=== PATIENT | male | born 1980 | race Caucasian/White ===

== ENCOUNTER 2018-05-26 10:19 | Inpatient (IN) ==
[2018-05-26] MEDS ORDERED: SOLU-MEDROL IV ONE (10:25)
--- NOTE | 2018-05-26 10:56 | ED EKG INTERP ---
This chart was entered by Sneha Pratt Scribe, acting as scribe for Saulo Marquez DO. EKG Interpretation - EKG Time of EKG reading by physician:: 10:53 EKG Interpretation (*Must complete 3 of following elements*): Abnormal Rate: 111 Rhythm: sinus tachycardia ST Wave: elevated (T wave abnormality, consider anterior ischemia) Comments: abnormal ECG Attestation - Physician/ ESTEPHANIE Attestation Patient care was provided by Advanced Practice Provider:: No The physician spent face to face time with patient:: Yes Advanced Practice Provider documentation review:: Supervising physician onsite and consulted in the evaluation and care of this patient. The physician did have a face to face encounter with the patient. This chart was documented by the indicated scribe, (Sneha Pratt Scribe) and accurately reflects the services I performed and decisions made by me, Saulo Marquez DO, as attested by the provider's signature.
[2018-05-26 10:58] LABS: BASO# 0.03 X1000 (0.0-0.2); BASO% 0.9 % (0.0-0.8); EOS# 0.05 X1000 (0.0-0.7); EOS% 1.4 % (0.0-10.0); HEMATOCRIT 49.1 % (42.0-52.0); HEMOGLOBIN 16.3 g/dL (14.0-18.0); LYMPH# 1.12 X1000 (1.2-3.4); LYMPH% 32.4 % (20.5-51.1); MCH 32.3 PG (27-31); MCHC 33.2 g/dL (33-37); MCV 97.4 FL (81-99); MONO# 0.38 X1000 (0.11-0.59); MPV 9.6 FL (7.4-10.4); NEUT# 1.88 X1000 (1.4-6.5); NEUT% 54.3 % (42.2-75.2); PLT 181 X1000 (130-400); RBC 5.04 XMIL (4.7-6.1); RDW 14.1 % (11.5-14.5); WBC 3.46 X1000 (4.8-10.8)
--- NOTE | 2018-05-26 11:05 | Diag Imaging Result Doc PS360 ---
EXAM: CHEST-2 VIEWS 05/26/2018 HISTORY: cough, shortness of breath TECHNIQUE: PA and lateral chest COMMENT: The inspiration is somewhat suboptimal. The appearance of the chest has not changed significantly since 05/08/2018. IMPRESSION: Stable chest. Electronically signed by Henry Bryant 05/26/2018 11:02 AM
[2018-05-26] MEDS ORDERED: ASPIRIN PO ONE (11:13)
[2018-05-26] MEDS ORDERED: DUONEB (A & A) INH ONE (11:18)
[2018-05-26 11:19] LABS: AGAP 13; ALB/GLOB RATIO 1.1; ALBUMIN 4.2 g/dL (3.5-5.0); ALKALINE PHOSPHATASE 84 U/L (32-122); BUN 4 mg/dL (8-22); CHLORIDE 96 mmol/L (98-107); COSMO 273; CREATININE 0.8 mg/dL (0.7-1.2); ESTIMATED GFR > 60; GLUCOSE 144 mg/dL (70-104); GOT 86 U/L (10-34); GPT 81 U/L (10-44); POTASSIUM 4.2 mmol/L (3.5-5.1); SODIUM 137 mmol/L (136-145); TCO2 28 mmol/L (25-35); TOTAL BILIRUBIN 0.18 mg/dL (0.20-1.00); TOTAL PROTEIN 8.1 g/dL (6.3-8.3)
--- NOTE | 2018-05-26 11:26 | PROVIDER DOCUMENTATION ---
HPI-Respiratory General - General Chief Complaint: Shortness of Breath Stated Complaint: SOB Time Seen by Provider: 05/26/18 10:23 Source: patient, old records Allergies/Adverse Reactions: Patient Allergies Allergy/AdvReac Type Severity Reaction Status Date / Time No Known Allergies Allergy Verified 05/26/18 10:31 Home Medications: Home Medication List Medication Instructions Recorded Confirmed Last Taken Type Acyclovir [Zovirax] 800 mg PO 5XDAY #35 tab 01/25/18 Unknown Rx Hydrocodone/Acetaminophen [[place] 1 ea PO Q6H PRN PRN 5 Days #20 tab 01/25/18 Unknown Rx 7.5-325 Tablet] Albuterol Sulfate Inhaler 2 puff INH Q6H PRN PRN #1 inhaler 05/09/18 Unknown Rx [Ventolin Hfa] D-Methorphan/P-Epd/Bpm [Bromfed Dm 5 ml PO Q4H PRN #120 ml 05/09/18 Unknown Rx Liquid] Lisinopril 20 mg PO DAILY #30 tab 05/09/18 Unknown Rx Prednisone 20 mg PO DIRECTED #18 tab 05/09/18 Unknown Rx - History of Present Illness-Resp Nature of Presenting Problem: This pt, who has a hx of COPD and reports that he has a chronically "collapsed left lung", presents today by EMS for reported SOB. He states that he is supposed to be taking albuterol and "some other stuff" at home but has not filled any of his prescriptions due to lack of funds. EMS reports on arrival O2 sat was 89% on RA but after a breathing tx his O2 sat maria c to 95%. Pt denies any chest pains. No other issues or complaints at this time. Quality of Pain: reports: none Severity in ED: reports: moderate Onset/Duration: reports: 2 days ago Timing: reports: still present, getting worse Context: reports: out of meds Episode Frequency: chronic episodes Current Respiratory Medication Therapy: Initiated other (see hpi) Modifying Factors: improves with: exertion Associated Symptoms: reports: shortness of breath, wheezing Similar Symptoms Previously?: Yes Recently seen or treated by another doctor?: Yes (other ER) Review of Systems - Adult - REVIEW OF SYSTEMS - ADULT Constitutional: reports: no symptoms reported. denies: chills, fever Eyes: reports: no symptoms reported. denies: discharge, dry eyes Ears, Nose, Mouth & Throat: reports: no symptoms reported. denies: ear discharge, ear pain Cardiovascular: reports: no symptoms reported. denies: chest pain, edema Respiratory: reports: shortness of breath, wheezing. denies: chronic cough, cough Gastrointestinal: reports: no symptoms reported. denies: abdominal pain, hematemesis Genitourinary: reports: no symptoms reported. denies: dysuria, discharge Musculoskeletal: reports: no symptoms reported. denies: bone pain, back pain Integumentary: reports: no symptoms reported. denies: hives, hair loss Neurological: reports: no symptoms reported. denies: ataxia, dizziness/vertigo Psychiatric: reports: no symptoms reported. denies: anxiety, anti-depressant use Endocrine: reports: no symptoms reported Hematologic/Lymphatic: reports: no symptoms reported Allergic/Immunologic: reports: no symptoms reported All Other Systems: Reviewed and Negative Past History - Adult - PAST MEDICAL HISTORY-ADULT Review of Records: reports: Old Records Reviewed, Nursing Assessment Review, Medications Reviewed, Social history reviewed & non-contributory. Major Childhood Illnesses: reports: denies history Cardiovascular: reports: denies history Respiratory: reports: COPD Gastrointestinal: reports: denies history, pancreatitis Obstetrical/Gynecological: reports: denies history Genitourinary: reports: denies history Musculoskeletal: reports: denies history Neurological: reports: denies history Endocrine/Immune: reports: denies history Other Conditions: reports: denies history - PRIOR SURGERIES/PROCEDURES Surgical/Procedure History: reports: other (lung removed) - IMMUNIZATION STATUS Childhood Immunizations: See Nurse Assessment Flu Vaccine: See Nurse Assessment - FAMILY HISTORY Family History: reviewed, not pertinent - SOCIAL HISTORY Smoking: cigarettes, greater than 1 pack/day Provider spent 3-5 mins advising pt. on dangers of tobacco.: Discussed manners to quit use, and f/u contacts for add'l counseling. Physical Exam-General - PHYSICAL EXAM-ADULT Initial Vital Signs Reviewed: Yes - CONSTITUTIONAL General Appearance: appears well, alert, no apparent distress - EYES Eyes: PERRL/EOMI, pink conjunctivae - HEAD, EARS, NOSE, MOUTH & THROAT HENMT: normocephalic/atraumatic, moist mucous membranes, normal ENT inspection - NECK Neck: supple, normal inspection - RESPIRATORY Respiratory: chest non-tender, no pleuratic chest pain, no respiratory distress, no accessory muscle use, wheezing. negative: respiratory distress, decreased breath sounds, accessory muscle use, crackles, rales, rhonchi, stridor, decreased rate, increased rate - CARDIOVASCULAR Cardiovascular: normal peripheral pulses, tachycardia - GASTROINTESTINAL (ABDOMEN) Abdominal Exam: normal bowel sounds, non tender, soft - LYMPHATIC Lymphatic: no adenopathy - MUSCULOSKELETAL Back Exam: normal inspection, no CVA tenderness, no vertebral tenderness Extremity: normal range of motion, non-tender - SKIN Integumentary: normal color, normal turgor, warm/dry - NEUROLOGIC Neurologic: grossly normal, no motor/sensory deficits - PSYCHIATRIC Psych/Mental Status: normal mood/affect, normal thought content, normal thought process, oriented x 3 - HEART Score HEART Score: History: Slightly Suspicious HEART Score: ECG: Normal HEART Score: Age: < or = 45 Years HEART Score: Risk Factors for Atherosclerotic Disease: 1 or 2 Risk Factors HEART Score: Troponin: < or = Normal Limit Total HEART Score:: 1 Progress - PLAN OF CARE/RESULTS Progress/Plan/Lab Results: Vital Signs - 8 hr 05/26/18 10:25 05/26/18 10:26 05/26/18 10:28 Temperature 98.1 F Pulse Rate 112 H 109 H 113 H Respiratory Rate 18 17 17 Blood Pressure 165/113 177/137 O2 Sat by Pulse Oximetry 97 96 94 L 05/26/18 10:29 05/26/18 10:30 05/26/18 10:31 Temperature Pulse Rate 110 H 112 H 112 H Respiratory Rate 17 20 23 Blood Pressure 165/113 169/102 O2 Sat by Pulse Oximetry 94 L 94 L 94 L 05/26/18 10:40 05/26/18 10:50 05/26/18 11:37 Temperature Pulse Rate 113 H 115 H 112 H Respiratory Rate 19 22 22 Blood Pressure O2 Sat by Pulse Oximetry 89 L 90 L 99 Laboratory Results - last 24 hr 05/26/18 05/26/18 05/26/18 10:44 10:44 10:44 WBC 3.46 L RBC 5.04 Hgb 16.3 Hct 49.1 MCV 97.4 MCH 32.3 H MCHC 33.2 RDW Std Deviation 14.1 Plt Count 181 MPV 9.6 Immature Gran % (Auto) 0.0 Neut % (Auto) 54.3 Lymph % (Auto) 32.4 [place] % (Auto) 11.0 H Eos % (Auto) 1.4 Baso % (Auto) 0.9 H Immature Gran # (Auto) 0.00 Neut # (Auto) 1.88 Lymph # (Auto) 1.12 L [place] # (Auto) 0.38 Eos # (Auto) 0.05 Baso # (Auto) 0.03 Specimen Type Sample Site pH pCO2 pO2 HCO3 Base Excess Oxyhemoglobin ABG O2 Sat (Calculated) ABG O2 Saturation ABG Carboxyhemoglobin ABG Methemoglobin Johnathon Test A-a O2 Difference Total Hemoglobin Lactate Liter Flow Blood Gas Modality FiO2 % Sodium 137 Potassium 4.2 Chloride 96 L Carbon Dioxide 28 Anion Gap 13 BUN 4 L Creatinine 0.8 Estimated GFR/1.73 m2 > 60 BUN/Creatinine Ratio 5 Glucose 144 H Calculated Osmolality 273 Calcium 9.0 Total Bilirubin 0.18 L AST 86 H ALT 81 H Alkaline Phosphatase 84 Troponin T < 0.010 Total Protein 8.1 Albumin 4.2 Globulin 3.9 Albumin/Globulin Ratio 1.1 05/26/18 11:35 WBC RBC Hgb Hct MCV MCH MCHC RDW Std Deviation Plt Count MPV Immature Gran % (Auto) Neut % (Auto) Lymph % (Auto) [place] % (Auto) Eos % (Auto) Baso % (Auto) Immature Gran # (Auto) Neut # (Auto) Lymph # (Auto) [place] # (Auto) Eos # (Auto) Baso # (Auto) Specimen Type ARTERIAL Sample Site R RADIAL pH 7.33 L pCO2 64 H* pO2 64 HCO3 28.6 H Base Excess 5.2 H Oxyhemoglobin 86.6 L* ABG O2 Sat (Calculated) 19.5 ABG O2 Saturation 93.0 L ABG Carboxyhemoglobin 5.90 H* ABG Methemoglobin 1.0 Johnathon Test YES A-a O2 Difference 84.0 Total Hemoglobin 16.0 Lactate 1.70 Liter Flow 3.0 Blood Gas Modality CANNULA FiO2 % 32.0 Sodium Potassium Chloride Carbon Dioxide Anion Gap BUN Creatinine Estimated GFR/1.73 m2 BUN/Creatinine Ratio Glucose Calculated Osmolality Calcium Total Bilirubin AST ALT Alkaline Phosphatase Troponin T Total Protein Albumin Globulin Albumin/Globulin Ratio Orders Category Date Time Status Saline Loc NOW Care 05/26/18 10:23 Active CHEST-2 VIEWS [RAD] Stat Exams 05/26/18 10:24 Completed ABG [RESP] Routine Lab 05/26/18 11:35 Completed BLOOD CULTURE [BLDCUL] Stat Lab 05/26/18 10:44 Received CBC WITH ELECTRONIC DIFF [HEME] Stat Lab 05/26/18 10:44 Completed COMPREHENSIVE METABOLIC PANEL [CHEM] Stat Lab 05/26/18 10:44 Completed TROPONIN T Stat Lab 05/26/18 10:44 Completed Acetaminophen [Tylenol] Med 05/26/18 11:32 Discontinued 650 mg PO NOW ONE Albuterol 2.5MG/Ipratrop 0.5MG [Duoneb (A & A)] Med 05/26/18 11:18 Discontinued 3 ml INH NOW ONE Aspirin Med 05/26/18 11:13 Discontinued 325 mg PO NOW ONE Methylprednisolone Sod Succ [Solu-Medrol] Med 05/26/18 10:25 Discontinued 60 mg IV NOW ONE Aerosol Treatments Routine Oth 05/26/18 11:18 Completed Aerosol Treatments Stat Oth 05/26/18 11:18 Completed O2 Per Protocol Stat Oth 05/26/18 10:25 Completed EKG [EKG] Stat Ther 05/26/18 10:24 Ordered Result Diagrams: 05/26/18 10:44 05/26/18 10:44 - REASSESSMENT Reassessment #1 Time Reassessed: 11:52 Status: improving (Pt wheezing slightly improved after 2 A/A nebulizers and IV steroids. O2 sat still remains in the 80s when O2 is discontinued. Will discuss case c hospitalist service for admission. Discussed case c Dr. Marquez who is in agreement.) - XRAY 1 XRAY Study: Chest (HISTORY: cough, shortness of breath TECHNIQUE: PA and lateral chest COMMENT: The inspiration is somewhat suboptimal. The appearance of the chest has not changed significantly since 05/08/2018. IMPRESSION: Stable chest. Electronically signed by Henry Bryant 05/26/2018 11:02 AM) - CONSULTS/PCP/HOSPITALIST Notification #1 *Consult/PCP/Hospitalist*: Dr. Ross Time Discussed: 11:55 Consult Disposition: Admit Departure - Departure Date of Disposition Decision: 05/26/18 Time of Disposition Decision: 11:55 DIAGNOSIS: COPD with exacerbation, Hypoxemia Disposition: ADMITTED INPATIENT 09 Certified Medical Emergency: Emergent Condition: Stable Referrals and Follow-Ups: None,PCP [Primary Care Provider] - Discharge Education: Steps to Quit Smoking, [id number] - Critical Care Note This patient required my direct & personal management of CC.: No Attestation - Physician/ ESTEPHANIE Attestation Patient care was provided by Advanced Practice Provider:: Yes Advanced Practice Provider:: Jer Hamilton Advanced Practice Provider documentation review:: The Mid-level provider documentation, treatment plan and medical decision making was reviewed by the physician who agrees with all treatment and medical decision making by the MLP. The physician spent face to face time with patient:: No Advanced Practice Provider documentation review:: Supervising physician onsite and consulted in the evaluation and care of this patient. The physician did not have a face to face encounter with the patient.
[2018-05-26] MEDS ORDERED: TYLENOL PO ONE (11:32)
[2018-05-26 11:46] LABS: ALLEN TEST YES; BE 5.2 mmoll (-3.0-3.0); BLOOD TYPE ARTERIAL; HCO3-(ACT) 28.6 mmoll (20.0-26.0); O2(CT) 19.5 mL/dL (15.0-23.0); PO2(98.6) 64 mmHg (60-100); SAMPLE BLOOD; pH(98.6) 7.33 (7.35-7.45)
[2018-05-26 11:48] LABS: MODALITY CANNULA; O2HB 86.6 % (95.0-99.0); PCO2(98.6) 64 mmHg (35-45)
[2018-05-26] MEDS ORDERED: ZOFRAN IV PRN ×2 (11:58→13:38)
[2018-05-26] MEDS ORDERED: NS NEB INH SCH (12:15)
[2018-05-26 12:45] LABS: URINE SOURCE CLEAN CATCH
[2018-05-26 12:49] LABS: BILIRUBIN URINE NEGATIVE (NEGATIVE); BLOOD URINE TRACE (NEGATIVE); COLOR YELLOW; GLUCOSE URINE NEGATIVE (NEGATIVE); KETONE URINE NEGATIVE (NEGATIVE); LEUKOCYTES URINE NEGATIVE (NEGATIVE); NITRITE URINE NEGATIVE (NEGATIVE); PH URINE 5.5; PROTEIN URINE 30 mg/dL (NEGATIVE); TURBIDITY URINE CLEAR (CLEAR); UROBILINOGEN URINE NORMAL (NORMAL)
[2018-05-26 12:51] LABS: UR EPITHELIAL CELLS <10 /HPF (<10); URINE BACTERIA NEGATIVE /HPF; URINE RBC <10 /HPF (<10); URINE WBC <10 /HPF (<10)
[2018-05-26] MEDS ORDERED: MORPHINE IV ONE (13:02)
[2018-05-26 13:04] LABS: UR AMPHETAMINES QUAL NONE DETECTED (NONE DETECT); UR BARBITUATES QUAL NONE DETECTED (NONE DETECT); UR BENZODIAZEPIN QUAL PRESUMPTIVE POSITIVE (NONE DETECT); UR CANNABINOIDS QUAL NONE DETECTED (NONE DETECT); UR COCAINE QUAL NONE DETECTED (NONE DETECT); UR METHADONE QUAL NONE DETECTED (NONE DETECT); UR OPIATES QUAL NONE DETECTED (NONE DETECT); UR OXYCODONE QUAL NONE DETECTED (NONE DETECT); UR PCP QUAL NONE DETECTED (NONE DETECT)
[2018-05-26] MEDS: NS 1,000 ML IV SCH ×2 (13:22→23:12)
--- NOTE | 2018-05-26 13:27 | ED EKG INTERP ---
This chart was entered by Sneha Pratt Scribe, acting as scribe for Saulo Marquez DO. EKG Interpretation - EKG Time of EKG reading by physician:: 13:24 EKG Read and Signed by:: Saulo Marquez EKG Interpretation (*Must complete 3 of following elements*): Abnormal Rate: 119 Rhythm: sinus tachycardia ST Wave: elevated (T wave abnormality, consider anterior ischemia) Comments: abnormal ECG Attestation - Physician/ ESTEPHANIE Attestation Patient care was provided by Advanced Practice Provider:: Yes Advanced Practice Provider documentation review:: The Mid-level provider documentation, treatment plan and medical decision making was reviewed by the physician who agrees with all treatment and medical decision making by the MLP. The physician spent face to face time with patient:: No Advanced Practice Provider documentation review:: Supervising physician onsite and consulted in the evaluation and care of this patient. The physician did not have a face to face encounter with the patient. This chart was documented by the indicated scribe, (Sneha Pratt Scribe) and accurately reflects the services I performed and decisions made by Jimmy cuba Thomas E., DO, as attested by the provider's signature.
[2018-05-26] MEDS: ZITHROMAX 500 MG/NS 500 MG/250 ML IVPB IV SCH (13:29)
[2018-05-26] MEDS ORDERED: XANAX PO PRN (13:38)
[2018-05-26] MEDS ORDERED: NORCO-7.5 PO PRN (13:38)
[2018-05-26 14:01] LABS: CK-MB 5.77 ng/mL (0.0-5.0)
[2018-05-26] MEDS: XOPENEX NEB INH SCH ×4 (14:22→22:49)
[2018-05-26] MEDS: CARAFATE LIQUID PO SCH ×2 (14:31→20:01)
[2018-05-26] MEDS: NICODERM PATCH TD SCH (14:33)
[2018-05-26] MEDS: ATROVENT NEB INH SCH ×3 (15:06→22:49)
--- NOTE | 2018-05-26 16:29 | HISTORY AND PHYSICAL ---
PRIMARY CARE PROVIDER: No one. CHIEF COMPLAINT: Shortness of breath and chest pain. HISTORY OF PRESENT ILLNESS: Mr. Oskar Suazo is a 37-year-old male with a medical history of hypertension and COPD who presents here with complaints of progressive shortness of breath with chest pain over the last 3 days along with worsening reflux. He does state he was helping somebody move heavy furniture over the last 3 days and he does have reproducible palpated chest pain on the right pectoral muscle closest to the sternum, which apparently is causing him some pretty significant discomfort. It does not radiate down the arms or into the back. There is no nausea or vomiting associated with it. He does have a productive cough with clear phlegm and when it gets into an aggressive cough that can make him nauseated and want to throw up, otherwise he does not have that problem. He also denies having any issues with his bowel movements, but has complained of more distention of the abdomen and more reflux. He essentially wakes up choking on his reflux in the middle of the night. He is highly anxious and admits to taking Xanax that is not prescribed to him to help him with his anxiety prior to admission. He also admits to drinking alcohol last night. He states he only drinks a few beers, up to 6 beers, on the weekend only although he heavily smells of alcohol during the assessment. He does not act like he is intoxicated. Cardiac enzymes are negative. There is no ST elevation on the EKG. His ABGs reveal he is more of a hyperoxic, hypercarbic, mild COPD exacerbation. We will admit him and treat him for COPD exacerbation along with the chest wall pain he is feeling. PAST MEDICAL HISTORY: 1. Hypertension. 2. COPD. 3. History of pancreatitis in the past that was alcohol induced. PAST SURGICAL HISTORY: Denies. SOCIAL HISTORY: He smokes 3 packs per day and has been a heavy smoker since the age of 15 or 16. States he only drinks a 6-pack of beer a couple of days on the weekends. Denies any illicit drug use. FAMILY HISTORY: He denies any medical history of the family. ALLERGIES: No known drug allergies. HOME MEDICATIONS: 1. Lisinopril 20 mg p.o. daily. 2. He was on a prednisone taper at the end of April for COPD. 3. Albuterol inhaler at the end of April also was added. REVIEW OF SYSTEMS: A 14-point review of systems was complete and all are negative except as those mentioned above in the HPI. He denies having any fevers, chills or any other issues. PHYSICAL EXAMINATION: VITAL SIGNS: Temperature 98.1, heart rate 121, respiratory rate 22, blood pressure 123/79, O2 saturation 93% on 3 L nasal cannula. GENERAL: Mr. Oskar Suazo is a 37-year-old male who is highly anxious but able to answer questions appropriately. HEENT: Atraumatic. Normocephalic. Pupils equal, round and reactive to light. Sclerae red and irritated with dry mucous membranes, very bad oral dentition. NECK: Trachea is midline. LUNGS: Clear to auscultation with some mild expiratory wheezes throughout. No accessory muscle use or work with breathing noted. Tolerating 3 L nasal cannula. CARDIOVASCULAR: S1 and S2. Tachycardic rate and rhythm. No murmurs, rubs or gallops. No lower extremity edema. 2+ dorsalis and radial pulses. Negative for JVD or carotid bruits. ABDOMEN: Round. Soft. Nontender. Positive bowel sounds x4. EXTREMITIES: Moves all extremities equally with full range of motion. NEUROLOGIC: Alert and oriented x3. Follows commands. Sensory intact. SKIN: Warm, dry and intact. LABORATORY DATA: White blood cells 3000, hemoglobin 16, hematocrit 49, platelet count 181. D- dimer 0.46. ABGs on 3 L with pH of 7.33, PCO2 64, PO2 64, bicarbonate 28, base excess of 5.2. Saturation 86.6%, oxyhemoglobin saturation is 93. Carboxyhemoglobin is 5.9. Lactate 1.7. Sodium 137, potassium 4.2, BUN 4, creatinine 0.8, glucose 144, calcium 9.0, bilirubin 0.18, AST 86, ALT 81. CK 568. Troponin less than 0.01 x2. CRP 0.59, albumin 4.2. Urinalysis with 30 protein, trace blood, no bacteria. Urine drug screen positive for benzodiazepines. IMAGING: A chest x-ray with stable chest, respirations somewhat suboptimal. EKG; sinus tachycardia with rate of 111. The second EKG was also sinus tachycardia, rate 119. ASSESSMENT AND PLAN: 1. Mild chronic obstructive pulmonary disease exacerbation with hypercarbic hypoxemic respiratory failure, all he is requiring right now is 3 L nasal cannula. He is tolerating that well. Nebulizers will be added. Incentive spirometer and pulmonary consult. He apparently does not have any medications at home to treat his chronic obstructive pulmonary disease. IV Solu- Medrol and azithromycin. 2. Complaints of chest wall pain that is reproducible over the right pectoral muscle that is causing significant discomfort for him. Will do scheduled Robaxin 3 times a day for about 2 days. He will also have steroids that were added for the chronic obstructive pulmonary disease. He can have [place] for pain control. 3. Anxiety. Could be situational but he admits to taking Xanax that is not prescribed to him, so he may self medicate with other peoples prescriptions. We will go ahead and add Xanax p.r.n. for risk of withdrawal if he is used to taking it pretty frequently. 4. History of alcohol abuse with a history of pancreatitis. Currently only admits to drinking a 6- pack of beer one or two times on the weekend, but he has a heavy smell of alcohol. We will do an alcohol level. We will need to watch closely for any signs or symptoms of withdrawal. 5. Tobacco abuse. Cessation discussed. Will add a nicotine patch. 6. Hypertension. Continue lisinopril. 7. Gastroesophageal reflux disease which he states has worsened over the last 3 days. He is getting IV Protonix for that. 8. Deep vein thrombosis prophylaxis with Lovenox. Dictated by RENEE Parisi for Linnette Ross MD cc: RENEE Parisi MD I performed a face to face encounter on the patient. I reviewed all imaging and labs on the patient. I agree with the H&P as dictated. The patient presented to the ER with a chief complaint of reproducible chest pain and shortness of breath. On exam, the patient is very anxious but alert and oriented x 4. He has diminshed breath sounds bilaterally. No peripheral edema noted. The patient will be admitted with a diagnosis of Acute hypercapnic and hypoxemic respiratory failure secondary to a COPD exacerbation. Will treat the patient as outlined in the above assessment and plan. BENOIT
[2018-05-26] MEDS ORDERED: ROBAXIN PO SCH ×2 (17:00→21:00)
[2018-05-26] MEDS: ATIVAN IV PRN ×3 (17:09→23:12)
[2018-05-26] MEDS: SOLU-MEDROL IV SCH (20:01)
[2018-05-26] MEDS: PULMICORT INH SCH (20:04)
[2018-05-26 22:31] LABS: CK-MB 5.52 ng/mL (0.0-5.0)
[2018-05-27] MEDS ORDERED: CATAPRES PO ONE (01:35)
[2018-05-27] MEDS: CARAFATE LIQUID PO SCH ×5 (01:53→21:02)
[2018-05-27] MEDS: ATIVAN IV PRN ×5 (01:53→20:06)
[2018-05-27] MEDS: XOPENEX NEB INH SCH ×6 (03:05→22:45)
[2018-05-27] MEDS: ATROVENT NEB INH SCH ×6 (03:05→22:45)
[2018-05-27] MEDS: SOLU-MEDROL IV SCH ×3 (05:15→20:06)
[2018-05-27] MEDS: PROTONIX IV SCH ×2 (05:16→06:00)
[2018-05-27 05:20] LABS: ALLEN TEST YES; BLOOD TYPE ARTERIAL; HCO3-(ACT) 31.7 mmoll (20.0-26.0); METHB 1.2 % (0.0-1.5); O2(CT) 17.7 mL/dL (15.0-23.0); PO2(98.6) 55 mmHg (60-100); SAMPLE BLOOD; SAO2 90.5 % (95.0-100.0); THB 14.4 g/dL (11.5-17.4); pH(98.6) 7.34 (7.35-7.45)
[2018-05-27 05:27] LABS: MODALITY CANNULA; O2HB 87.5 % (95.0-99.0); PCO2(98.6) 70 mmHg (35-45)
[2018-05-27 05:31] LABS: HEMATOCRIT 43.4 % (42.0-52.0); HEMOGLOBIN 13.7 g/dL (14.0-18.0); MCH 31.6 PG (27-31); MCHC 31.6 g/dL (33-37); MCV 100.2 FL (81-99); MPV 9.8 FL (7.4-10.4); RBC 4.33 XMIL (4.7-6.1); RDW 14.1 % (11.5-14.5); WBC 5.04 X1000 (4.8-10.8)
[2018-05-27 05:48] LABS: AGAP 6; ALB/GLOB RATIO 1.4; ALBUMIN 4.1 g/dL (3.5-5.0); ALKALINE PHOSPHATASE 66 U/L (32-122); BUN 6 mg/dL (8-22); CALCIUM 8.2 mg/dL (8.8-10.2); CHLORIDE 91 mmol/L (98-107); COSMO 267; CREATININE 0.7 mg/dL (0.7-1.2); ESTIMATED GFR > 60; GLUCOSE 155 mg/dL (70-104); GOT 45 U/L (10-34); GPT 60 U/L (10-44); HEMOGLOBIN A1C 5.7 % (4.8-6.0); MAGNESIUM 1.7 mg/dL (1.5-2.7); POTASSIUM 4.5 mmol/L (3.5-5.1); SODIUM 133 mmol/L (136-145); TCO2 36 mmol/L (25-35); TOTAL BILIRUBIN 0.44 mg/dL (0.20-1.00); TOTAL PROTEIN 7.1 g/dL (6.3-8.3)
--- NOTE | 2018-05-27 06:50 | Diag Imaging Result Doc PS360 ---
EXAM: CHEST-PORTABLE HISTORY: dyspnea TECHNIQUE: Portable chest single view COMPARISON: 05/26/2018 FINDINGS: The lungs are well expanded. The right hemidiaphragm is elevated The heart is borderline mildly prominent. The vessels are not distended. There are no infiltrates. No effusion identified. IMPRESSION: Stable chest Electronically signed by Ramón Gutierrez 05/27/2018 6:48 AM
--- NOTE | 2018-05-27 07:05 | EKG Report ---
Test Performed on : 05/27/2018 06:59:09 AM Test Reason : chest pain Blood Pressure : / mmHG Vent. Rate : 099 BPM Atrial Rate : 099 BPM P-R Int : 142 ms QRS Dur : 084 ms QT Int : 380 ms P-R-T Axes : 053 064 044 degrees QTc Int : 487 ms Normal sinus rhythm. Prolonged QT Abnormal ECG When compared with ECG of 26-MAY-2018 13:15, (Unconfirmed) No significant change was found Confirmed by Kaden MERINO, Aleksander ([id number]) on 05/27/2018 8:57:51 AM
[2018-05-27] MEDS: PULMICORT INH SCH ×2 (07:31→20:00)
[2018-05-27] MEDS: PRINIVIL PO SCH (08:07)
[2018-05-27] MEDS: NS 1,000 ML IV SCH ×2 (08:07→21:45)
[2018-05-27] MEDS: ASPIRIN PO SCH (08:07)
[2018-05-27] MEDS: LOVENOX SUBQ SCH (08:07)
[2018-05-27] MEDS: NICODERM PATCH TD SCH (08:07)
[2018-05-27] MEDS ORDERED: NORCO-7.5 PO PRN (08:10)
[2018-05-27] MEDS ORDERED: ATIVAN IV PRN (08:10)
--- NOTE | 2018-05-27 08:30 | ECHO REPORT ---
ORDER DATE: 05/26/2018 INTERPRETING PHYSICIAN: Dr. La REQUESTING PHYSICIAN: Hospitalist CLINICAL INDICATIONS: This is a 37-year-old male with shortness of breath, collapsed lung. M-MODE MEASUREMENTS: Right ventricle: cm. Left ventricle end diastole: 4.8 cm. Left ventricle end systole: 3.8 cm. Posterior wall: 1.1 cm. Interventricular septum: 1.2 cm. Left atrium: 2.6 cm. Aortic root: 2.8 cm. SUMMARY OF 2-DIMENSIONAL IMAGIN. Left ventricular function is normal. Ejection fraction is estimated at 75%. No wall motion abnormality noted. 2. Pulmonic valve looks normal. Color flow mapping is unremarkable. 3. Aortic valve looks normal. Color flow mapping is unremarkable. 4. The tricuspid valve appears to be unremarkable. 5. The mitral valve also appears to be unremarkable. 6. Pulse wave Doppler of mitral inflow showed reversal of the E and the A ratio. The ratio is 0.7. 7. The tissue Doppler of septal and lateral mitral annulus averages 6 cm. 8. Prominent epicardial fat pad is noted. 9. There is no evidence of mass or thrombus. CONCLUSIONS: In summary, this study showed: 1. Normal left ventricular systolic function. 2. Unremarkable aortic, mitral, pulmonic, and tricuspid valves. 3. Pulmonary pressure appears to be normal. 4. Diastolic function appears to be grossly normal. Clinical correlation is recommended. This study was very difficult. cc: MD Tiny Carrasco CRNP
--- NOTE | 2018-05-27 08:44 | EKG Report ---
Test Performed on : 05/26/2018 1:15:29 PM Test Reason : SOB Blood Pressure : / mmHG Vent. Rate : 119 BPM Atrial Rate : 119 BPM P-R Int : 138 ms QRS Dur : 082 ms QT Int : 328 ms P-R-T Axes : 065 087 056 degrees QTc Int : 461 ms Sinus tachycardia. T wave abnormality, consider anterior ischemia Abnormal ECG When compared with ECG of 26-MAY-2018 10:22, (Unconfirmed) No significant change was found Unconfirmed Result
[2018-05-27] MEDS ORDERED: LIBRIUM PO ONE (09:55)
[2018-05-27] MEDS: LABETALOL IV PRN (10:36)
[2018-05-27] MEDS: POTASSIUM CHLORIDE 20 MEQ, MAGNESIUM SULFATE 2 GM, THIAMINE 100 MG, FOLIC ACID 1 MG, M.... IV SCH ×12 (10:36→20:15)
[2018-05-27 11:31] LABS: HEPATITIS PROFILE ACUTE SEE COMMENTS
--- NOTE | 2018-05-27 11:57 | PROGRESS NOTE ---
DATE: 05/27/2018 SUBJECTIVE: Patient has no major complaints. He looks more tremulous, more agitated per nurse than he has been. He is diaphoretic. He has erythematous. OBJECTIVE: Blood pressure 164/104, heart rate 120, respiratory rate 18, temperature 98.7 degrees, 98% on 4 L.Cardiovascular: Tachycardia. Pulmonary: Bilateral breath sounds clear to auscultation. Gastrointestinal: Soft, nontender, nondistended. Bowel sounds are positive. DIAGNOSTIC STUDIES: White count 5, hemoglobin 13, hematocrit 43, platelet 164. PH 7.34, pCO2 of 70, PaO2 of 55. BUN 6, creatinine 0.7, AST 45, ALT 60. LDL is only 104. PROBLEM LIST: 1. Alcohol withdrawal syndrome. We will schedule his Librium. We will have to be very careful because of concerns of over-sedation, and we will follow closely. 2. Chronic obstructive pulmonary disease exacerbation. He is on breathing treatments of Xopenex and Atrovent. He is on steroids. He is on azithromycin. 3. Acute hypercapnic respiratory failure. Seems to be a little worse. I am going to initiate BiPAP, and we will follow closely. 4. Hypertension. Appears to be stable. Continue current medications. DISPOSITION: Pending his clinical status. CRITICAL CARE TIME: 32 minutes for acute hypercapnic respiratory failure and requiring positive- pressure ventilation. cc: Rubens Webb MD
[2018-05-27] MEDS: CATAPRES PO SCH ×2 (12:52→20:06)
[2018-05-27] MEDS: ZITHROMAX 500 MG/NS 500 MG/250 ML IVPB IV SCH (13:18)
[2018-05-27 16:04] LABS: ALLEN TEST YES; BE 11.5 mmoll (-3.0-3.0); BLOOD TYPE ARTERIAL; HCO3-(ACT) 33.8 mmoll (20.0-26.0); METHB 1.2 % (0.0-1.5); O2(CT) 18.1 mL/dL (15.0-23.0); O2HB 93.6 % (95.0-99.0); PO2(98.6) 73 mmHg (60-100); SAMPLE BLOOD; SAO2 96.4 % (95.0-100.0); SRATE 10 BPM; THB 13.7 g/dL (11.5-17.4); pH(98.6) 7.38 (7.35-7.45)
[2018-05-27 16:06] LABS: MODALITY BI PAP
[2018-05-27 16:08] LABS: PCO2(98.6) 67 mmHg (35-45)
[2018-05-27] MEDS: LIBRIUM PO SCH ×2 (17:09→21:45)
[2018-05-28] MEDS: ATIVAN IV PRN ×6 (00:35→20:59)
[2018-05-28] MEDS: LIBRIUM PO SCH ×4 (03:19→21:53)
[2018-05-28] MEDS: SOLU-MEDROL IV SCH ×3 (03:22→20:20)
[2018-05-28] MEDS: XOPENEX NEB INH SCH ×6 (03:36→22:59)
[2018-05-28] MEDS: ATROVENT NEB INH SCH ×6 (03:36→22:59)
[2018-05-28] MEDS: NS 1,000 ML IV SCH ×2 (04:46→17:13)
[2018-05-28] MEDS: POTASSIUM CHLORIDE 20 MEQ, MAGNESIUM SULFATE 2 GM, THIAMINE 100 MG, FOLIC ACID 1 MG, M.... IV SCH ×12 (04:53→06:02)
[2018-05-28 05:23] LABS: ALLEN TEST YES; BLOOD TYPE ARTERIAL; HCO3-(ACT) 31.1 mmoll (20.0-26.0); METHB 0.8 % (0.0-1.5); O2(CT) 18.1 mL/dL (15.0-23.0); O2HB 96.4 % (95.0-99.0); PO2(98.6) 120 mmHg (60-100); SAMPLE BLOOD; SAO2 98.7 % (95.0-100.0); THB 13.2 g/dL (11.5-17.4); pH(98.6) 7.35 (7.35-7.45)
[2018-05-28 05:24] LABS: MODALITY CANNULA
[2018-05-28 05:25] LABS: PCO2(98.6) 65 mmHg (35-45)
[2018-05-28 05:56] LABS: HEMATOCRIT 42.2 % (42.0-52.0); HEMOGLOBIN 13.7 g/dL (14.0-18.0); LYMPH# 0.33 X1000 (1.2-3.4); LYMPH% 4.6 % (20.5-51.1); MCH 32.7 PG (27-31); MCHC 32.5 g/dL (33-37); MCV 100.7 FL (81-99); MONO# 0.28 X1000 (0.11-0.59); MONO% 3.9 % (1.7-9.3); MPV 9.9 FL (7.4-10.4); NEUT% 91.5 % (42.2-75.2); PLT 170 X1000 (130-400); RBC 4.19 XMIL (4.7-6.1); RDW 14.4 % (11.5-14.5); WBC 7.21 X1000 (4.8-10.8)
[2018-05-28] MEDS: PROTONIX IV SCH (06:02)
[2018-05-28] MEDS: CARAFATE LIQUID PO SCH ×4 (06:02→20:20)
--- NOTE | 2018-05-28 06:14 | CONSULTATION ---
DATE OF CONSULTATION: 05/27/2018 REQUESTING PROVIDER: Dr. Linnette Ross. REASON FOR CONSULTATION: Acute respiratory failure, COPD, asthma. HISTORY OF PRESENT ILLNESS: This is a 37-year-old male with a medical history of hypertension, COPD, asthma, pancreatitis, and cirrhosis. He presented to the ER yesterday morning with worsening shortness of breath for 2 days. Initial workup in the ER revealed mild COPD exacerbation with hypercapnic hypoxemic respiratory failure. He has been admitted to the [facility] for further evaluation and management. At the time of my examination, patient is lying in bed comfortably with no acute distress noted. He reports right upper chest sharp pain without radiation before admission. The pain had been under control, but came back last night. He reports asthma when he was a kid but had no asthma exacerbation after he grew up. He also has a very mild productive cough, wheezing, dizziness and pedal edema at times. He denies fever, chills, unintentional weight change, headache, or bowel habit change. PAST MEDICAL AND SURGICAL HISTORY: 1. Hypertension. 2. COPD, diagnosed 20 years ago. Prescribed with albuterol inhaler but patient cannot afford it. 3. Asthma when patient was a kid but no asthma attack after he grew up. 4. History of pancreatitis secondary to alcohol abuse. 5. History of cirrhosis secondary to alcohol abuse. SOCIAL HISTORY: The patient used to smoke up to 2 packs per day and currently cut down to 3 cigarettes per day. He started smoking at the age of 15. He used to drink up to six-pack of beer per day on the weekends and currently cut down to 4 a day. He has no history of illicit drug use. FAMILY HISTORY: Father of COPD. ALLERGIES: No known drug allergies. REVIEW OF SYSTEMS: A 10 point review of systems was conducted and the pertinent is listed within the HPI, otherwise noncontributory. PHYSICAL EXAMINATION: Vital Signs: Temperature 98.7 degrees, blood pressure 165/114, pulse 108, respiratory rate 18, oxygen saturation 98% on nasal cannula at 3 L. General: Patient is lying in bed comfortably with no acute distress noted. He appears older than stated age. HEENT: Atraumatic, trachea midline. Mucosa pink and moist. Respiratory: Even and unlabored. Symmetrical excursion. Auscultation reveals mild expiratory wheezing throughout and early inspiratory crackles on the left lower lung zone. Cardiovascular: Regular rate and rhythm. Gastrointestinal: Bowel sounds normoactive in all 4 quadrants. Nontender, firm, distended. Extremities: No pedal edema. No cyanosis. No clubbing. Neurologic: Alert, oriented x3. Speech fluent. Follows commands. LABORATORY DATA: White blood cell 5.4, hemoglobin 14.7, hematocrit 43.4, platelet a 164,000. Sodium 133, potassium 4.5, chloride 91, carbon dioxide 36, BUN 6, creatinine 0.7, glucose 155. ABG, pH 7.34, pCO2 70, PO2 55, HC03 31.7, base excess 9.0, and oxyhemoglobin 87.5. IMAGING DATA: Chest x-ray revealed stable chest with elevated right hemidiaphragm. ASSESSMENT: This is a 37-year-old male with a medical history of hypertension, COPD, asthma, pancreatitis, and cirrhosis secondary to alcohol abuse. He has been admitted to the [facility] with mild chronic obstructive pulmonary disease exacerbation and acute hypercapnic hypoxemic respiratory failure. 1. Acute hypoxemic hypercapnic respiratory failure. 2. Chronic obstructive pulmonary disease exacerbation. 3. Anxiety. 4. Hypertension. 5. Alcohol withdrawal syndrome. 6. Tobacco abuse. 7. Morbid obesity. PLAN: 1. Continue supplemental oxygen. 2. Start BiPAP. 3. Continue antibiotics, steroids and bronchodilators 4. Follow up with ABG, CBC, BMP and blood culture. 5. Continue short-acting bronchodilators at discharge. 6. Recommend discharging patient on a long-acting anticholinergic such as Spiriva. 7. Educate patient on the importance and means of smoking cessation. Encouraged patient to quit smoking. The patient states that he is ready. He currently only smokes 3 cigarettes per day. He states he will quit without medication. 8. Continue GI and DVT prophylaxis. Further recommendations pending hospital course. Thank you for the courtesy of this consult. Dictated by RENEE Wong for Raven Stokes MD cc: RENEE Wong MD [facility]
[2018-05-28 06:29] LABS: AGAP 8; BUN 10 mg/dL (8-22); CALCIUM 8.8 mg/dL (8.8-10.2); CHLORIDE 96 mmol/L (98-107); COSMO 277; CREATININE 0.8 mg/dL (0.7-1.2); ESTIMATED GFR > 60; GLUCOSE 137 mg/dL (70-104); MAGNESIUM 2.4 mg/dL (1.5-2.7); POTASSIUM 4.9 mmol/L (3.5-5.1); SODIUM 138 mmol/L (136-145); TCO2 34 mmol/L (25-35)
[2018-05-28 06:58] LABS: LYMPHS 4 % (21-51); MONO 2 % (1-9); SEGS 94 % (42-75)
[2018-05-28] MEDS: PULMICORT INH SCH ×2 (07:37→19:19)
[2018-05-28] MEDS: PRINIVIL PO SCH (08:45)
[2018-05-28] MEDS: ASPIRIN PO SCH (08:45)
[2018-05-28] MEDS: NICODERM PATCH TD SCH (08:45)
[2018-05-28] MEDS: LOVENOX SUBQ SCH (08:45)
[2018-05-28] MEDS: CATAPRES PO SCH ×2 (08:45→20:20)
[2018-05-28] MEDS: ZITHROMAX 500 MG/NS 500 MG/250 ML IVPB IV SCH (12:34)
--- NOTE | 2018-05-28 18:16 | PROGRESS NOTE ---
DATE: 05/28/2018 SUBJECTIVE: The patient is resting comfortably. He slept. He used his BiPAP last night. OBJECTIVE: Vital Signs: Temperature 97.5 degrees, blood pressure 156/87, heart rate 96, respirations 18, O2 saturation 98% on 3 L nasal cannula. General: This is a middle-aged male, sitting up in bed in no acute distress. Heart: S1, S2 normal. Regular rate and rhythm. Lungs: Equal air entry bilaterally. No wheezing. No rales. No rhonchi. Abdomen: Positive bowel sounds. Soft, obese. Extremities: No edema, no cyanosis. Neurologic: The patient is alert and oriented x3. LABORATORY DATA: White blood cell count 7.2, hemoglobin 13, hematocrit 42, platelets 170,000. Sodium 138, potassium 4.9, chloride 96, CO2 is 34, BUN 10, creatinine 0.8, glucose 137, magnesium 2.4. ASSESSMENT AND PLAN: 1. Acute hypercapnic and hypoxemic respiratory failure. Continue with bilevel positive airway pressure at night and continue to treat chronic obstructive pulmonary disease. 2. Chronic obstructive pulmonary disease exacerbation. Continue with intravenous steroids, bronchodilator therapy, antibiotics and supplemental oxygen. 3. Acute alcohol intoxication. Continue on Librium and Ativan. 4. Hypertension. Continue on current antihypertensive regimen. 5. Deep vein thrombosis prophylaxis. Continue on Lovenox. cc: Linnette Ross MD
[2018-05-29] MEDS: ATIVAN IV PRN ×5 (01:19→19:51)
[2018-05-29] MEDS: XOPENEX NEB INH SCH ×6 (03:23→23:12)
[2018-05-29] MEDS: ATROVENT NEB INH SCH ×6 (03:23→23:12)
[2018-05-29] MEDS: LIBRIUM PO SCH ×4 (03:37→21:02)
[2018-05-29] MEDS: SOLU-MEDROL IV SCH ×2 (03:37→12:23)
[2018-05-29] MEDS ORDERED: POTASSIUM CHLORIDE 20 MEQ, MAGNESIUM SULFATE 2 GM, THIAMINE 100 MG, FOLIC ACID 1 MG, M.... IV SCH ×6 (05:00)
[2018-05-29 05:24] LABS: HEMATOCRIT 41.9 % (42.0-52.0); HEMOGLOBIN 13.1 g/dL (14.0-18.0); MCH 32.7 PG (27-31); MCHC 31.3 g/dL (33-37); MCV 104.5 FL (81-99); MPV 9.7 FL (7.4-10.4); RBC 4.01 XMIL (4.7-6.1); RDW 14.1 % (11.5-14.5); WBC 7.25 X1000 (4.8-10.8)
[2018-05-29 05:40] LABS: ALLEN TEST YES; BE 7.1 mmoll (-3.0-3.0); BLOOD TYPE ARTERIAL; HCO3-(ACT) 30.4 mmoll (20.0-26.0); O2(CT) 20.4 mL/dL (15.0-23.0); O2HB 96.1 % (95.0-99.0); PO2(98.6) 112 mmHg (60-100); SAMPLE BLOOD; SAO2 98.5 % (95.0-100.0); pH(98.6) 7.37 (7.35-7.45)
[2018-05-29] MEDS: CARAFATE LIQUID PO SCH ×5 (05:46→21:02)
[2018-05-29] MEDS: PROTONIX IV SCH ×2 (05:46→06:06)
[2018-05-29 05:47] LABS: MODALITY BI PAP; PCO2(98.6) 60 mmHg (35-45)
[2018-05-29 05:48] LABS: AGAP 7; ALB/GLOB RATIO 1.2; ALBUMIN 3.7 g/dL (3.5-5.0); ALKALINE PHOSPHATASE 54 U/L (32-122); BUN 12 mg/dL (8-22); CALCIUM 8.3 mg/dL (8.8-10.2); CHLORIDE 97 mmol/L (98-107); COSMO 277; CREATININE 0.8 mg/dL (0.7-1.2); ESTIMATED GFR > 60; GLUCOSE 153 mg/dL (70-104); GOT 32 U/L (10-34); GPT 46 U/L (10-44); POTASSIUM 4.3 mmol/L (3.5-5.1); SODIUM 137 mmol/L (136-145); TCO2 33 mmol/L (25-35); TOTAL BILIRUBIN 0.38 mg/dL (0.20-1.00); TOTAL PROTEIN 6.7 g/dL (6.3-8.3)
[2018-05-29] MEDS: PULMICORT INH SCH ×2 (07:22→19:31)
[2018-05-29] MEDS: PRINIVIL PO SCH (08:44)
[2018-05-29] MEDS: LOVENOX SUBQ SCH (08:44)
[2018-05-29] MEDS: ASPIRIN PO SCH (08:44)
[2018-05-29] MEDS: NICODERM PATCH TD SCH (08:44)
[2018-05-29] MEDS: VITAMIN B-1 PO SCH (08:44)
[2018-05-29] MEDS: CATAPRES PO SCH ×2 (08:44→21:03)
[2018-05-29] MEDS ORDERED: CENTRUM CHEWABLE PO SCH (09:00)
[2018-05-29] MEDS: FLINTSTONES COMPLETE PO SCH (10:41)
[2018-05-29] MEDS: LABETALOL IV PRN ×2 (12:23→19:47)
[2018-05-29] MEDS: ZITHROMAX 500 MG/NS 500 MG/250 ML IVPB IV SCH (13:41)
[2018-05-29] MEDS: COREG PO SCH (21:03)
[2018-05-29] MEDS: NORVASC PO SCH (21:03)
--- NOTE | 2018-05-30 03:59 | PROGRESS NOTE ---
DATE: 05/29/2018 SUBJECTIVE: The patient is resting comfortably in bed. He states that his breathing is a lot better today. He did wear his BiPAP overnight. OBJECTIVE: Vital Signs: Temperature 97 degrees, blood pressure 180/100, heart rate 105, respirations 13, O2 saturation 98% on 3 L nasal cannula. General: This is a young male, lying in bed in no acute distress. Heart: S1, S2 normal. Tachycardic. Lungs: Diminished breath sounds. No wheezing. No rales. Abdomen: Positive bowel sounds. Soft, nontender, nondistended. Extremities: No edema, no cyanosis. Neurologic: The patient is alert and oriented x3. LABORATORIES: ABG with pH of 7.37, pCO2 of 60, PO2 of 112, bicarbonate 30. Sodium 137, potassium 4.3, BUN 12, creatinine 0.8, glucose 153. ASSESSMENT AND PLAN: 1. Acute hypercapnic and hypoxemic respiratory failure. Slowly improving. The patient is still requiring supplemental oxygen. Continue with BiPAP at night and to continue to treat COPD exacerbation. 2. Chronic obstructive pulmonary disease exacerbation. Slowly improving. We will start to wean the steroids. Continue with bronchodilator therapy, antibiotics, and supplemental oxygen. 3. Alcohol dependence with intoxication. Continue on Librium and Ativan as needed. 4. Hypertension. We will add Coreg 12.5 mg twice a day. 5. Gastrointestinal prophylaxis. Continue on Protonix. 6. Deep vein thrombosis prophylaxis. Continue on Lovenox. cc: Linnette Ross MD
[2018-05-30] MEDS: LIBRIUM PO SCH ×4 (04:08→21:14)
[2018-05-30] MEDS: ATIVAN IV PRN ×6 (04:08→22:13)
[2018-05-30] MEDS: XOPENEX NEB INH SCH ×6 (04:12→23:45)
[2018-05-30] MEDS: ATROVENT NEB INH SCH ×6 (04:12→23:45)
[2018-05-30] MEDS: LABETALOL IV PRN ×2 (04:21→13:37)
[2018-05-30 05:27] LABS: ALLEN TEST YES; BE 10.4 mmoll (-3.0-3.0); BLOOD TYPE ARTERIAL; HCO3-(ACT) 32.9 mmoll (20.0-26.0); METHB 0.8 % (0.0-1.5); O2HB 93.7 % (95.0-99.0); PO2(98.6) 73 mmHg (60-100); SAMPLE BLOOD; SAO2 96.1 % (95.0-100.0); THB 14.4 g/dL (11.5-17.4); pH(98.6) 7.44 (7.35-7.45)
[2018-05-30 05:35] LABS: MODALITY CANNULA; PCO2(98.6) 54 mmHg (35-45)
[2018-05-30 05:43] LABS: HEMATOCRIT 42.7 % (42.0-52.0); HEMOGLOBIN 13.7 g/dL (14.0-18.0); MCH 32.4 PG (27-31); MCHC 32.1 g/dL (33-37); MCV 100.9 FL (81-99); MPV 9.6 FL (7.4-10.4); RBC 4.23 XMIL (4.7-6.1); RDW 14.1 % (11.5-14.5); WBC 7.96 X1000 (4.8-10.8)
[2018-05-30] MEDS: SOLU-MEDROL IV SCH ×3 (06:00→21:14)
[2018-05-30] MEDS: SODIUM CHLORIDE 0.9% INJ SCH (06:00)
[2018-05-30] MEDS: CARAFATE LIQUID PO SCH ×4 (06:00→21:14)
[2018-05-30] MEDS: PROTONIX IV SCH (06:00)
[2018-05-30] MEDS: APRESOLINE PO SCH ×3 (06:02→21:14)
[2018-05-30 06:03] LABS: AGAP 8; BUN 14 mg/dL (8-22); CALCIUM 8.6 mg/dL (8.8-10.2); CHLORIDE 96 mmol/L (98-107); COSMO 276; CREATININE 0.8 mg/dL (0.7-1.2); ESTIMATED GFR > 60; GLUCOSE 92 mg/dL (70-104); POTASSIUM 3.3 mmol/L (3.5-5.1); SODIUM 138 mmol/L (136-145); TCO2 34 mmol/L (25-35)
[2018-05-30] MEDS ORDERED: KLOR-CON PO ONE (06:07)
[2018-05-30] MEDS ORDERED: NITROGLYCERIN SL ONE (08:00)
[2018-05-30] MEDS: PULMICORT INH SCH ×2 (08:09→19:35)
[2018-05-30] MEDS: ASPIRIN PO SCH (08:21)
[2018-05-30] MEDS: FLINTSTONES COMPLETE PO SCH (08:21)
[2018-05-30] MEDS: PRINIVIL PO SCH (08:22)
[2018-05-30] MEDS: LOVENOX SUBQ SCH (08:22)
[2018-05-30] MEDS: CATAPRES PO SCH ×2 (08:22→21:14)
[2018-05-30] MEDS: NORVASC PO SCH ×2 (08:22→21:14)
[2018-05-30] MEDS: VITAMIN B-1 PO SCH (08:22)
[2018-05-30] MEDS: NICODERM PATCH TD SCH (08:22)
[2018-05-30] MEDS: COREG PO SCH ×2 (08:23→21:14)
--- NOTE | 2018-05-30 10:09 | EKG Report ---
Test Performed on : 05/30/2018 09:58:13 AM Test Reason : chest pain Blood Pressure : / mmHG Vent. Rate : 095 BPM Atrial Rate : 095 BPM P-R Int : 136 ms QRS Dur : 084 ms QT Int : 368 ms P-R-T Axes : 029 069 043 degrees QTc Int : 462 ms Normal sinus rhythm. Normal ECG When compared with ECG of 27-MAY-2018 06:59, No significant change was found Confirmed by Kaden MERINO, Aleksander ([id number]) on 05/31/2018 11:36:46 AM
--- NOTE | 2018-05-30 11:52 | Diag Imaging Result Doc PS360 ---
EXAM: CT ABDOMEN/PELVIS W/O CONTRAST HISTORY: abdominal wall hematoma TECHNIQUE: CT abdomen and pelvis without contrast COMPARISON: None. FINDINGS: No calcified gallstones or adjacent inflammation. No focal hepatic abnormality although there may be fatty infiltration of the liver. Normal spleen, pancreas, and adrenal glands. No right renal stone or right-sided hydronephrosis. There is a 4 x 8 x 10 mm left lower pole renal stone. No hydronephrosis. Normal aorta. No bowel obstruction. There are scattered colonic diverticula. There is stool proximal and mid colon. Normal appendix. No abscess. No ascites. The urinary bladder is moderately distended and is normal. Small fat filled left inguinal hernia. Mild right periumbilical subcutaneous edema. No fluid collection. The abdominal muscular is symmetric. No muscular hematoma. IMPRESSION: 1.Nonobstructing left renal stone 2.Constipation 3.Scattered colonic diverticula 4.Right anterior abdominal and pelvic subcutaneous edema, but no abscess or hematoma. This exam was performed using automated exposure control, adjustment of mA or kV according to patient size, and/or use of iterative reconstruction technique. Electronically signed by Ramón Gutierrez 05/30/2018 11:50 AM
[2018-05-30] MEDS: ZITHROMAX 500 MG/NS 500 MG/250 ML IVPB IV SCH (13:37)
--- NOTE | 2018-05-30 16:30 | PROGRESS NOTE ---
DATE: 05/30/2018 SUBJECTIVE: The patient is resting comfortably. He does complain of some mild chest pain. OBJECTIVE: Vital Signs: Temperature 97.6 degrees, blood pressure 159/108, heart rate 95, respirations 16, O2 saturation 94% on 2 L nasal cannula. General: This is a young male, sitting up in bed, in no acute distress. Heart: S1, S2 normal. Regular rate and rhythm. Lungs: Equal air entry bilaterally. No crackles. No rales. Abdomen: Positive bowel sounds. Soft, obese, nontender, nondistended. Extremities: No edema, no cyanosis. Neurologic: The patient is alert and oriented x3. DIAGNOSTIC STUDIES: ABG with pH of 7.44, pCO2 of 54, PO2 of 73, bicarbonate 32. Sodium 138, potassium 3.3, chloride 96, CO2 of 34, BUN 14, creatinine 0.8, glucose 92. White blood cell count 7.9, hemoglobin 13, hematocrit 42, platelets 158,000. Troponin less than 0.01. CT of the abdomen and pelvis reveals a nonobstructing left renal stone. Constipation. Right anterior abdominopelvic subcutaneous edema. No abscess or hematoma. ASSESSMENT AND PLAN: 1. Acute hypercapnic and hypoxemic respiratory failure. Slowly improving. The patient is currently on supplemental oxygen. Continue with BiPAP at night. 2. Chronic obstructive pulmonary disease exacerbation. Continue with IV steroids, bronchodilator therapy, antibiotics, and supplemental oxygen. 3. Alcohol dependence with intoxication. Continue with Ativan p.r.n. 4. Abdominal wall bruising. We will continue to monitor this closely. 5. Uncontrolled hypertension. We will adjust the patient's antihypertensive regimen. 6. Gastrointestinal prophylaxis. Continue on Protonix. 7. Deep vein thrombosis prophylaxis. The patient is ambulatory. We will continue with SCDs while the patient is in bed. cc: Linnette Ross MD MTDKely
[2018-05-31] MEDS: ATIVAN IV PRN ×6 (02:08→20:41)
[2018-05-31] MEDS: XOPENEX NEB INH SCH ×6 (03:15→23:30)
[2018-05-31] MEDS: ATROVENT NEB INH SCH ×6 (03:15→23:30)
[2018-05-31] MEDS: LIBRIUM PO SCH ×4 (04:23→20:41)
[2018-05-31] MEDS: APRESOLINE PO SCH ×3 (04:24→20:42)
[2018-05-31 05:55] LABS: HEMATOCRIT 44.8 % (42.0-52.0); HEMOGLOBIN 14.6 g/dL (14.0-18.0); MCH 32.2 PG (27-31); MCHC 32.6 g/dL (33-37); MCV 98.9 FL (81-99); MPV 9.8 FL (7.4-10.4); RBC 4.53 XMIL (4.7-6.1); WBC 7.94 X1000 (4.8-10.8)
[2018-05-31 06:11] LABS: ALLEN TEST YES; BE 6.5 mmoll (-3.0-3.0); BLOOD TYPE ARTERIAL; HCO3-(ACT) 29.8 mmoll (20.0-26.0); O2(CT) 19.9 mL/dL (15.0-23.0); O2HB 92.7 % (95.0-99.0); PCO2(98.6) 47 mmHg (35-45); PO2(98.6) 69 mmHg (60-100); SAMPLE BLOOD; SAO2 95.2 % (95.0-100.0); THB 15.3 g/dL (11.5-17.4); pH(98.6) 7.44 (7.35-7.45)
[2018-05-31 06:12] LABS: MODALITY ROOM AIR
[2018-05-31] MEDS: SOLU-MEDROL IV SCH ×3 (06:13→21:22)
[2018-05-31] MEDS: PROTONIX IV SCH (06:13)
[2018-05-31] MEDS: CARAFATE LIQUID PO SCH ×4 (06:13→20:42)
[2018-05-31] MEDS: SODIUM CHLORIDE 0.9% INJ SCH (06:13)
[2018-05-31 06:20] LABS: AGAP 9; BUN 16 mg/dL (8-22); CALCIUM 9.1 mg/dL (8.8-10.2); CHLORIDE 96 mmol/L (98-107); COSMO 276; CREATININE 0.8 mg/dL (0.7-1.2); ESTIMATED GFR > 60; GLUCOSE 125 mg/dL (70-104); POTASSIUM 3.8 mmol/L (3.5-5.1); SODIUM 137 mmol/L (136-145); TCO2 32 mmol/L (25-35)
--- NOTE | 2018-05-31 07:45 | Diag Imaging Result Doc PS360 ---
CHEST-1 VIEW - 05/31/2018 INDICATION: SOB COMPARISON: 05/27/2018 FINDINGS: Stable right hemidiaphragm elevation. The lungs are clear. Heart size is normal. No pneumothorax or pleural effusion. IMPRESSION: Negative exam. Electronically signed by Rene Forbes 05/31/2018 7:43 AM
[2018-05-31] MEDS: PULMICORT INH SCH ×2 (07:50→19:35)
[2018-05-31] MEDS: NICODERM PATCH TD SCH (08:09)
[2018-05-31] MEDS: ASPIRIN PO SCH (08:09)
[2018-05-31] MEDS: COREG PO SCH ×2 (08:09→20:41)
[2018-05-31] MEDS: FLINTSTONES COMPLETE PO SCH (08:09)
[2018-05-31] MEDS: NORVASC PO SCH ×2 (08:10→20:41)
[2018-05-31] MEDS: PRINIVIL PO SCH (08:10)
[2018-05-31] MEDS: CATAPRES PO SCH ×2 (08:10→20:41)
[2018-05-31] MEDS: VITAMIN B-1 PO SCH (08:10)
[2018-05-31] MEDS: ZITHROMAX 500 MG/NS 500 MG/250 ML IVPB IV SCH (14:31)
[2018-05-31] MEDS ORDERED: ATIVAN IV ONE (16:04)
--- NOTE | 2018-05-31 20:22 | PROGRESS NOTE ---
DATE: 05/31/2018 SUBJECTIVE: The patient is sitting up in bed. He states that he feels a lot better. He has not required supplemental oxygen today. OBJECTIVE: Vital Signs: Temperature 98 degrees, blood pressure 144/95, heart rate 93, respirations 12, O2 saturation 96% on room air. General: This is a young male sitting in bed in no acute distress. Heart: S1, S2 normal. Tachycardic. Lungs: Equal air entry bilaterally. Diminished breath sounds at the bases. Abdomen: Positive bowel sounds. Soft, nontender, nondistended. Extremities: No edema, no cyanosis. Neurologic: The patient is alert and oriented x3. LABORATORY DATA: Sodium 137, potassium 3.8, chloride 96, CO2 is 32, BUN 16, creatinine 0.8, glucose 125. DIAGNOSTIC DATA: Chest x-ray shows clear lungs. ASSESSMENT AND PLAN: 1. Acute hypoxemic respiratory failure. Resolved. 2. Acute hypercapnic respiratory failure. Resolved. 3. Chronic obstructive pulmonary disease exacerbation. Slowly improving. We will start weaning the steroids. Continue with bronchodilator therapy and supplemental oxygen. 4. Acute alcohol intoxication. Improved. The patient is on Librium. 5. Uncontrolled hypertension. Continue to adjust the patient's antihypertensive regimen. 6. Morbid obesity. Aware. 7. Gastrointestinal prophylaxis. Continue on Protonix. 8. Deep vein thrombosis prophylaxis. The patient is ambulatory. Continue with sequential compression devices due to the excessive bruising on the patient's abdomen. cc: Linnette Ross MD
--- NOTE | 2018-05-31 20:40 | PULMONOLOGY PROGRESS NOTE ---
DATE: 05/31/2018 SUBJECTIVE: The patient is awake, alert and conversant. He reports some wheezing today, which improved following bronchodilator. OBJECTIVE: BP 144/95, heart rate 93, respiratory rate 12, oxygen saturation 96% on room air. HEENT: Pupils are equal and reactive. Oropharynx is clear. Neck is supple. Chest reveals prolonged expiratory phase with distant breath sounds. Cardiac exam: S1, S2. Abdomen is obese and soft. Extremities reveal trace to 1+ peripheral edema. DIAGNOSTIC DATA: Chest x-ray reveals stable elevation of the right hemidiaphragm, otherwise no acute changes. LABORATORY DATA: Arterial blood gas reveals a pH of 7.44, pCO2 of 47, pO2 of 69 on room air. IMPRESSION: A 37-year-old with: 1. Acute hypercapnic hypoxemic respiratory failure. 2. Chronic obstructive pulmonary disease exacerbation. 3. Hypertension. 4. Ongoing tobacco use. RECOMMENDATIONS: 1. Encourage smoking cessation. 2. Encourage exercise and weight loss. 3. Adjust antihypertensive regimen. 4. Anticipate discharge soon. No additional pulmonary recommendations. cc: Marshal Infante MD
[2018-06-01] MEDS: ATIVAN IV PRN ×3 (03:11→11:35)
[2018-06-01] MEDS: ATROVENT NEB INH SCH ×3 (03:20→12:08)
[2018-06-01] MEDS: XOPENEX NEB INH SCH ×3 (03:20→12:08)
[2018-06-01 04:52] LABS: ALLEN TEST YES; BE 5.4 mmoll (-3.0-3.0); BLOOD TYPE ARTERIAL; HCO3-(ACT) 28.9 mmoll (20.0-26.0); METHB 1.1 % (0.0-1.5); O2(CT) 19.4 mL/dL (15.0-23.0); PCO2(98.6) 48 mmHg (35-45); PO2(98.6) 63 mmHg (60-100); SAMPLE BLOOD; SAO2 93.5 % (95.0-100.0); THB 15.2 g/dL (11.5-17.4); pH(98.6) 7.42 (7.35-7.45)
[2018-06-01 04:55] LABS: MODALITY ROOM AIR
[2018-06-01] MEDS: APRESOLINE PO SCH (05:50)
[2018-06-01] MEDS: SOLU-MEDROL IV SCH (05:50)
[2018-06-01] MEDS: PROTONIX IV SCH (06:17)
[2018-06-01] MEDS: CARAFATE LIQUID PO SCH ×2 (06:18→11:34)
[2018-06-01 07:45] LABS: HEMATOCRIT 45.4 % (42.0-52.0); HEMOGLOBIN 15.1 g/dL (14.0-18.0); MCH 31.9 PG (27-31); MCHC 33.3 g/dL (33-37); MPV 9.5 FL (7.4-10.4); RBC 4.73 XMIL (4.7-6.1); RDW 13.8 % (11.5-14.5); WBC 10.08 X1000 (4.8-10.8)
[2018-06-01 08:09] LABS: AGAP 9; BUN 18 mg/dL (8-22); CALCIUM 8.9 mg/dL (8.8-10.2); CHLORIDE 98 mmol/L (98-107); COSMO 275; CREATININE 0.9 mg/dL (0.7-1.2); ESTIMATED GFR > 60; GLUCOSE 119 mg/dL (70-104); POTASSIUM 3.7 mmol/L (3.5-5.1); SODIUM 136 mmol/L (136-145); TCO2 29 mmol/L (25-35)
[2018-06-01] MEDS: PULMICORT INH SCH (08:20)
[2018-06-01] MEDS: NICODERM PATCH TD SCH (09:29)
[2018-06-01] MEDS: LIBRIUM PO SCH (09:29)
[2018-06-01] MEDS: VITAMIN B-1 PO SCH (09:29)
[2018-06-01] MEDS: CATAPRES PO SCH (09:29)
[2018-06-01] MEDS: COREG PO SCH (09:29)
[2018-06-01] MEDS: PRINIVIL PO SCH (09:29)
[2018-06-01] MEDS: ASPIRIN PO SCH (09:29)
[2018-06-01] MEDS: NORVASC PO SCH (09:29)
[2018-06-01] MEDS: FLINTSTONES COMPLETE PO SCH (09:29)
[2018-06-01 11:23] VITALS: BP 136/85
--- NOTE | 2018-06-01 12:09 | Diag Imaging Result Doc PS360 ---
KNEE 3 VIEWS RIGHT - 06/01/2018 INDICATION: pain s/p fall TECHNIQUE: Three views COMPARISON: 09/22/2017 FINDINGS: Bones are intact and normally aligned. Joint spaces and soft tissues are clear. IMPRESSION: Negative exam. Electronically signed by Rene Forbes 06/01/2018 12:07 PM
--- NOTE | 2018-06-13 18:02 | DISCHARGE SUMMARY ---
ADMISSION DATE: 05/26/2018 DISCHARGE DATE: 06/01/2018 FINAL DISCHARGE DIAGNOSES: 1. Acute hypoxemic respiratory failure. 2. Acute hypercapnic respiratory failure. 3. Chronic obstructive pulmonary disease exacerbation. 4. Acute alcohol intoxication. 5. Hypertension. 6. Morbid obesity. 7. Alcohol dependence. CONSULTATIONS: Pulmonary consultation with Dr. Stokes. IMAGIN. Portable chest x-ray performed on May 26, 2018 revealed a stable chest. 2. Echocardiogram performed on May 26, 2018 revealed an ejection fraction of 75%. 3. CT of the abdomen and pelvis performed on May 30, 2018 revealed a nonobstructing left renal stone. Constipation. Right anterior abdominal and pelvic subcutaneous edema. HOSPITAL COURSE: Mr. Suazo is a 37-year-old male with a history of alcohol dependence, tobacco dependence, and obesity, who presented to the ER with chest pain and shortness of breath. On admission, the patient was noted to be in acute hypercapnic and hypoxemic respiratory failure. A chest x-ray was done that was unremarkable. The patient was admitted to the Hospitalist Service and Pulmonary Medicine was consulted. The patient did require BiPAP support. Bronchodilator therapy was also started. Serial cardiac enzymes were also ordered that were noted to be negative. The patient was treated with Librium due to the risk of alcohol withdrawal. Slowly over the course of the hospitalization the patient's respiratory status improved. Eventually, the patient was weaned off of supplemental oxygen completely. The patient was encouraged to stop smoking cigarettes and to quit drinking alcohol and to also lose weight. The patient was ultimately cleared for discharge home. DISCHARGE MEDICATIONS: 1. Coreg 25 mg oral twice a day. 2. Multivitamin 1 tablet oral daily. 3. Librium 10 mg p.o. 3 times a day. 4. Medrol Dosepak. 5. Danese 7.5/325 one tablet oral every 8 hours p.r.n. for pain. 6. Albuterol inhaler 2 puffs inhaled every 6 hours as needed. 7. Apresoline 75 mg oral every 8 hours. 8. Norvasc 5 mg oral twice a day. 9. Lisinopril 20 mg p.o. daily. DISCHARGE DIET: Low-sodium, low-cholesterol diet. ACTIVITY: As tolerated. FOLLOW-UP INSTRUCTIONS: The patient has been advised to follow up with his primary care physician within 2 weeks of discharge from the hospital. cc: Linnette Ross MD MTDD
== END 2018-06-01 14:24 | disposition home or self-care (01) | DRG 189 ==
LOC: SUPCPDRO → ED 10:19 → 3S 14:01 → SUATTDRO 14:01 → 3S 05-27 20:33 → 3N 05-31 12:33
PROVIDERS: ATTEND Internal Medicine
CPT/HCPCS: 71010; 71020; 71045; 71046; 73562; 74176; 80048; 80053; 80061; 80074; 80101; 80301; 80307; 80320; 80324; 80345; 80346; 80353; 80358; 80361; 80365; 81001; 82055; 82550; 82553; 82607; 82746; 82805; 83036; 83721; 83735; 83992; 84443; 84484; 85025; 85027; 85379; 86141; 87040; 93005; 93010; 93306; 94640; 94660; 94761; 94799; 96365; 96375; 99285; A9270; C9113; G0431; G0434; G0479; G0480; G6040; J0456; J1650; J2060; J2270; J2405; J2920; J2930; J3411; J3475; J3480; J7030; S0164

== ENCOUNTER 2018-09-22 05:20 | Inpatient (IN) ==
--- NOTE | 2018-09-22 05:25 | PROVIDER DOCUMENTATION ---
HPI-Male Problem - General Chief Complaint: Male Stated Complaint: GROIN PAIN Time Seen by Provider: 09/22/18 05:25 Allergies/Adverse Reactions: Patient Allergies Allergy/AdvReac Type Severity Reaction Status Date / Time No Known Allergies Allergy Verified 05/26/18 10:31 Home Medications: Home Medication List Medication Instructions Recorded Confirmed Last Taken Type Lisinopril 20 mg PO DAILY #30 tab 05/09/18 05/26/18 05/25/18 09:00 Rx Albuterol Sulfate Inhaler 2 puff INH Q6H PRN PRN #1 inhaler 06/01/18 Unknown Rx [Ventolin Hfa] Amlodipine [Norvasc] 5 mg PO BID #60 tab 06/01/18 Unknown Rx Carvedilol [Coreg] 25 mg PO BID #60 tab 06/01/18 Unknown Rx Chlordiazepoxide [Librium] 10 mg PO TID #15 cap 06/01/18 Unknown Rx Hydralazine [Apresoline] 75 mg PO Q8HR tab 06/01/18 Unknown Rx Hydrocodone/APAP 7.5 mg/325 mg 1 ea PO Q8H PRN PRN #20 tab 06/01/18 Unknown Rx [[place]-7.5] Methylprednisolone [Medrol Dosepak] 4 mg PO DIRECTED #1 pkg 06/01/18 Unknown Rx Mvi/Minerals Chew [Flintstones 1 ea PO DAILY #30 tab 06/01/18 Unknown Rx Complete] - History of Present Illness-Male Nature of Presenting Problem: A 38 Y/O MALE PRESENTS WITH C/O RIGHT LOWER ABD PAIN THAT GOES IN TO HIS RIGHT T ESTICLE. PAIN IS ABOUT A 8 AND ASSOCIATED WITH SOME NAUSEA. THE PAIN STARTED 2.5 DAYS AGO AND HAS BEEN ABOUT THE SAME. DENIES ANY VOMITING, DIARRHEA AND CONSTIPATION. PER PT HE HAS SOME URINARY URGENCY. DENIES ANY DYSURIA OR HEMATURIA. PER PT HAS NOT TAKEN ANY THING FOR PAIN FOR 2.5 DAYS. Location of Complaint: reports: right flank Radiation: reports: right flank Quality of Pain: reports: sharp Severity in ED: reports: severe Onset/Duration: reports: 3 days ago Timing: reports: still present, constant Urinary Symptoms: reports: urgency. denies: dysuria Associated Symptoms: reports: nausea. denies: vomiting Similar Symptoms Previously?: No Recently seen or treated by another doctor?: No Review of Systems - Adult - REVIEW OF SYSTEMS - ADULT Constitutional: reports: chills Eyes: denies: no symptoms reported Ears, Nose, Mouth & Throat: denies: no symptoms reported Cardiovascular: denies: no symptoms reported Respiratory: denies: no symptoms reported Gastrointestinal: reports: see HPI Genitourinary: reports: see HPI Musculoskeletal: denies: no symptoms reported Integumentary: denies: no symptoms reported Neurological: denies: no symptoms reported Psychiatric: denies: no symptoms reported Endocrine: denies: no symptoms reported Hematologic/Lymphatic: denies: no symptoms reported Allergic/Immunologic: denies: no symptoms reported Past History - Adult - PAST MEDICAL HISTORY-ADULT Review of Records: reports: Nursing Assessment Review, Medications Reviewed, Social history reviewed & non-contributory. Major Childhood Illnesses: reports: denies history Cardiovascular: reports: denies history Respiratory: reports: COPD Gastrointestinal: reports: denies history, pancreatitis Obstetrical/Gynecological: reports: denies history Genitourinary: reports: denies history Musculoskeletal: reports: denies history Neurological: reports: denies history Endocrine/Immune: reports: denies history Other Conditions: reports: denies history - PRIOR SURGERIES/PROCEDURES Surgical/Procedure History: reports: other (lung removed) - IMMUNIZATION STATUS Childhood Immunizations: See Nurse Assessment Flu Vaccine: See Nurse Assessment - FAMILY HISTORY Family History: reviewed, not pertinent Physical Exam-General - PHYSICAL EXAM-ADULT Initial Vital Signs Reviewed: Yes - CONSTITUTIONAL General Appearance: alert, mild distress - EYES Eyes: PERRL/EOMI - HEAD, EARS, NOSE, MOUTH & THROAT HENMT: normocephalic/atraumatic, moist mucous membranes, pharynx normal - RESPIRATORY Respiratory: lungs clear, normal breath sounds, no respiratory distress - CARDIOVASCULAR Cardiovascular: normal peripheral pulses, no edema, no murmur, tachycardia - GASTROINTESTINAL (ABDOMEN) Abdominal Exam: non tender, soft - LYMPHATIC Lymphatic: negative: inguinal node tender - MUSCULOSKELETAL Back Exam: normal inspection, no CVA tenderness, no vertebral tenderness Extremity: non-tender, no pedal edema - SKIN Integumentary: normal color, warm/dry - NEUROLOGIC Neurologic: grossly normal - PSYCHIATRIC Psych/Mental Status: normal mood/affect, oriented x 3 Progress - PLAN OF CARE/RESULTS Progress/Plan/Lab Results: Vital Signs - 8 hr 09/22/18 05:09/22/18 07:28 Temperature 98.6 F Pulse Rate 110 H 110 H Respiratory Rate 22 21 Blood Pressure 143/95 147/105 O2 Sat by Pulse Oximetry 95 95 Laboratory Results - last 24 hr 09/22/18 09/22/18 09/22/18 05:31 05:31 05:31 WBC 10.85 H RBC 4.66 L Hgb 15.3 Hct 42.7 MCV 91.6 MCH 32.8 H MCHC 35.8 RDW Std Deviation 13.0 Plt Count 210 MPV 9.4 Immature Gran % (Auto) 0.5 Neut % (Auto) 78.2 H Lymph % (Auto) 7.5 L [place] % (Auto) 12.4 H Eos % (Auto) 1.2 Baso % (Auto) 0.2 Immature Gran # (Auto) 0.05 H Neut # (Auto) 8.50 H Lymph # (Auto) 0.81 L [place] # (Auto) 1.34 H Eos # (Auto) 0.13 Baso # (Auto) 0.02 Sodium 126 L Potassium 3.2 L Chloride 84 L Carbon Dioxide 28 Anion Gap 14 BUN 7 L Creatinine 0.4 L Estimated GFR/1.73 m2 > 60 BUN/Creatinine Ratio 18 Glucose 108 H Calculated Osmolality 252 Calcium 8.5 L Total Bilirubin 0.50 AST 37 H ALT 41 Alkaline Phosphatase 90 Total Protein 7.5 Albumin 3.7 Globulin 4.0 Albumin/Globulin Ratio 1.0 Amylase 40 Lipase 16 Urine Source Urine Color Urine Clarity Urine pH Ur Specific [place] Urine Protein Urine Ketones Urine Blood Urine Nitrite Urine Bilirubin Urine Urobilinogen Urine Microscopic RBC Urine WBC Urine Microscopic WBC Ur Epithelial Cells Urine Bacteria Urine Glucose Urine Opiates Screen Ur Oxycodone Screen Urine Methadone Screen U Propoxyphene Qual Ur Barbituates Screen Ur Tricyclics Screen Ur Phencyclidine Scrn Ur Amphetamines Screen U Methamphetamines Scrn U Benzodiazepines Scrn Urine Cocaine Screen U Cannabinoids Screen 09/22/18 09/22/18 05:31 05:31 WBC RBC Hgb Hct MCV MCH MCHC RDW Std Deviation Plt Count MPV Immature Gran % (Auto) Neut % (Auto) Lymph % (Auto) [place] % (Auto) Eos % (Auto) Baso % (Auto) Immature Gran # (Auto) Neut # (Auto) Lymph # (Auto) [place] # (Auto) Eos # (Auto) Baso # (Auto) Sodium Potassium Chloride Carbon Dioxide Anion Gap BUN Creatinine Estimated GFR/1.73 m2 BUN/Creatinine Ratio Glucose Calculated Osmolality Calcium Total Bilirubin AST ALT Alkaline Phosphatase Total Protein Albumin Globulin Albumin/Globulin Ratio Amylase Lipase Urine Source CLEAN CATCH Urine Color YELLOW Urine Clarity CLEAR Urine pH 6.5 Ur Specific [place] 1.020 Urine Protein TRACE A Urine Ketones TRACE Urine Blood NEGATIVE Urine Nitrite NEGATIVE Urine Bilirubin NEGATIVE Urine Urobilinogen 8 Urine Microscopic RBC <10 Urine WBC TRACE A Urine Microscopic WBC <10 Ur Epithelial Cells <10 Urine Bacteria 1+ Urine Glucose NEGATIVE Urine Opiates Screen NONE DETECTED Ur Oxycodone Screen PRESUMPTIVE POSITIVE A Urine Methadone Screen NONE DETECTED U Propoxyphene Qual NONE DETECTED Ur Barbituates Screen NONE DETECTED Ur Tricyclics Screen NONE DETECTED Ur Phencyclidine Scrn NONE DETECTED Ur Amphetamines Screen NONE DETECTED U Methamphetamines Scrn NONE DETECTED U Benzodiazepines Scrn NONE DETECTED Urine Cocaine Screen NONE DETECTED U Cannabinoids Screen NONE DETECTED Orders Category Date Time Status Cardiac Monitoring DIRECTED Care 09/22/18 07:26 Active IV Insertion ORDERED Care 09/22/18 07:26 Active Notify MD of + Sepsis Screen NOW Care 09/22/18 07:26 Active Notify Physician As Ordered Care 09/22/18 07:26 Active CHEST-1 VIEW [RAD] Stat Exams 09/22/18 07:[address] ABDOMEN/PELVIS W/O CONTRAST [CT] Stat Exams 09/22/18 05:26 Completed AMYLASE [CHEM] Stat Lab 09/22/18 05:31 Completed BLOOD CULTURE [BLDCUL] Stat Lab 09/22/18 07:24 Ordered CBC WITH ELECTRONIC DIFF [HEME] Stat Lab 09/22/18 05:31 Completed CK PROFILE [SP CHEM] Stat Lab 09/22/18 05:31 Received COMPREHENSIVE METABOLIC PANEL [CHEM] Stat Lab 09/22/18 05:31 Completed LACTATE, PLASMA [CHEM] Q3H Lab 09/22/18 07:36 Ordered LACTATE, PLASMA [CHEM] Q3H Lab 09/22/18 10:30 Uncollected LACTATE, PLASMA [CHEM] Q3H Lab 09/22/18 13:30 Uncollected LIPASE [CHEM] Stat Lab 09/22/18 05:31 Completed PROTIME WITH INR [COAG] Stat Lab 09/22/18 05:31 Received PTT [COAG] Stat Lab 09/22/18 05:31 Received TROPONIN T Stat Lab 09/22/18 05:31 Received UA NIMS W/REFLEX CULT PL [URINALYSIS] Stat Lab 09/22/18 05:[address] W/POSS RFLX CULT [URINALYSIS] Stat Lab 09/22/18 07:26 Uncollected URINE CULTURE [RM] Routine Lab 09/22/18 06:19 Ordered URINE DRUG SCREEN PL Stat Lab 09/22/18 05:31 Completed 0.9% Sodium Chloride Inj [Ns] 1,000 ml Med 09/22/18 07:30 Active IV 125 mls/hr Ketorolac [Toradol] Med 09/22/18 05:26 Discontinued 30 mg IV NOW ONE Morphine Med 09/22/18 07:22 Discontinued 4 mg IV NOW ONE Ondansetron [Zofran] Med 09/22/18 07:22 Discontinued 4 mg IV NOW ONE Piperacillin/Tazobactam [Zosyn] 4.5 gm Med 09/22/18 07:21 Active 0.9% Sodium Chloride Inj [Ns] 100 ml IV NOW Oxygen Device Stat Oth 09/22/18 07:26 Active Result Diagrams: 09/22/18 05:31 09/22/18 05:31 - REASSESSMENT Reassessment #1 Time Reassessed: 07:10 Status: unchanged Reassessment Comment: CT SUGGESTIVE OF R RETROPERITONEAL PHLEGMON OR EARLY ABSCESS - CONSULTS/PCP/HOSPITALIST Notification #1 *Consult/PCP/Hospitalist*: DR BEATTY Time Discussed: 07:05 Consult Disposition: other (SAID WILL REVIEW THE CT AND CALL BACK) #2 Consult: DR BEATTY Time Discussed: 07:35 Consult Disposition: Will see in ED (AT BEDSIDE, ADMITTED TO [facility] BY DR BEATTY) Departure - Departure Date of Disposition Decision: 09/22/18 Time of Disposition Decision: 07:11 DIAGNOSIS: Phlegmon, Retroperitoneal abscess Disposition: ADMITTED INPATIENT 09 Certified Medical Emergency: Urgent Condition: Stable Referrals and Follow-Ups: None,PCP [Primary Care Provider] - - Critical Care Note This patient required my direct & personal management of CC.: No Attestation - Physician/ ESTEPHANIE Attestation Patient care was provided by Advanced Practice Provider:: No The physician spent face to face time with patient:: Yes Advanced Practice Provider documentation review:: Supervising physician onsite and consulted in the evaluation and care of this patient. The physician did have a face to face encounter with the patient.
[2018-09-22] MEDS ORDERED: TORADOL IV ONE (05:26)
[2018-09-22 05:50] LABS: BASO# 0.02 X1000 (0.0-0.2); BASO% 0.2 % (0.0-0.8); EOS# 0.13 X1000 (0.0-0.7); EOS% 1.2 % (0.0-10.0); HEMATOCRIT 42.7 % (42.0-52.0); HEMOGLOBIN 15.3 g/dL (14.0-18.0); IMM GRAN# 0.05 X1000 (0.0-0.04); IMM GRAN% 0.5 % (0.0-0.5); LYMPH# 0.81 X1000 (1.2-3.4); LYMPH% 7.5 % (20.5-51.1); MCH 32.8 PG (27-31); MCHC 35.8 g/dL (33-37); MCV 91.6 FL (81-99); MONO# 1.34 X1000 (0.11-0.59); MONO% 12.4 % (1.7-9.3); MPV 9.4 FL (7.4-10.4); NEUT% 78.2 % (42.2-75.2); PLT 210 X1000 (130-400); RBC 4.66 XMIL (4.7-6.1); WBC 10.85 X1000 (4.8-10.8)
[2018-09-22 06:06] LABS: ESTIMATED GFR > 60
[2018-09-22 06:17] LABS: BILIRUBIN URINE NEGATIVE (NEGATIVE); BLOOD URINE NEGATIVE (NEGATIVE); CLARITY CLEAR (CLEAR); COLOR YELLOW; GLUCOSE URINE NEGATIVE (NEGATIVE); KETONE URINE TRACE mg/dL (NEGATIVE); LEUKOCYTES URINE TRACE (NEGATIVE); NITRITE URINE NEGATIVE (NEGATIVE); PH URINE 6.5; PROTEIN URINE TRACE mg/dL (NEGATIVE); UROBILINOGEN URINE 8 mg/dL
[2018-09-22 06:18] LABS: AGAP 14; ALBUMIN 3.7 g/dL (3.5-5.0); ALKALINE PHOSPHATASE 90 U/L (32-122); BUN 7 mg/dL (8-22); CALCIUM 8.5 mg/dL (8.8-10.2); CHLORIDE 84 mmol/L (98-107); COSMO 252; CREATININE 0.4 mg/dL (0.7-1.2); GLUCOSE 108 mg/dL (70-104); GOT 37 U/L (10-34); GPT 41 U/L (10-44); LIPASE 16 U/L (13-60); POTASSIUM 3.2 mmol/L (3.5-5.1); SODIUM 126 mmol/L (136-145); TCO2 28 mmol/L (25-35); TOTAL PROTEIN 7.5 g/dL (6.3-8.3)
[2018-09-22 06:19] LABS: UR AMPHETAMINES QUAL NONE DETECTED (NONE DETECT); UR BARBITUATES QUAL NONE DETECTED (NONE DETECT); UR BENZODIAZEPIN QUAL NONE DETECTED (NONE DETECT); UR CANNABINOIDS QUAL NONE DETECTED (NONE DETECT); UR COCAINE QUAL NONE DETECTED (NONE DETECT); UR METHADONE QUAL NONE DETECTED (NONE DETECT); UR METHAMPHETAMINE QUAL NONE DETECTED (NONE DETECT); UR OPIATES QUAL NONE DETECTED (NONE DETECT); UR OXYCODONE QUAL PRESUMPTIVE POSITIVE (NONE DETECT); UR PCP QUAL NONE DETECTED (NONE DETECT); UR PROPOXYPHENE QUAL NONE DETECTED (NONE DETECT); UR TCA QUAL NONE DETECTED (NONE DETECT); URINE BACTERIA 1+ /HFP; URINE EPITHELIAL CELLS <10 /HPF (<10); URINE RBC <10 /HPF (<10); URINE SOURCE CLEAN CATCH; URINE WBC <10 /HPF (<10)
[2018-09-22] MEDS ORDERED: ZOSYN 4.5 GM in NS 100 ML IV ONE (07:21)
[2018-09-22] MEDS ORDERED: ZOFRAN IV ONE (07:22)
[2018-09-22] MEDS ORDERED: MORPHINE IV ONE (07:22)
--- NOTE | 2018-09-22 07:22 | Diag Imaging Result Doc PS360 ---
EXAM: CT ABDOMEN/PELVIS W/O CONTRAST 09/22/2018 HISTORY: R FLANK PAIN, R TESTICULAR PAIN X2 DAYS TECHNIQUE: This exam was performed using automated exposure control, adjustment of mA or kV according to patient size, and/or use of iterative reconstruction technique. COMMENT: The current study is compared with that of 05/30/2018. There is some atelectatic or fibrotic change in the right middle lobe medially. The opacities which were previously present in the right lower lobe have resolved. There is a 2 mm calculus in the upper pole of the left kidney and a 8 to 9 mm calculus in the lower pole. There is no evidence of hydronephrosis. There is no evidence of gallstones. There is what appears to be an abscess lateral to the right psoas muscle and abutting the transversus abdominis and iliacus muscles. This measures 7.6 x 4.2 x 6.7 cm. The appendix is not distended and is presumably not involved in this process. This is fairly close to the distal ileum and there is a radiopaque slender foreign bodies seen traversing the wall of the ileum near this location. It is conceivable that this represents a perforation of the wall of the ileum by a foreign body such as a fishbone. Some stranding in the retroperitoneal fat extends caudally along the iliopsoas and external iliac vessels. No evidence of stones in the right ureter is present. There is some diverticulosis in the sigmoid colon but no evidence of acute diverticulitis is present. There is a bone island in the proximal left femur. There is no evidence of acute bony abnormality. IMPRESSION: Perforation of the terminal ileum by foreign body, possibly a fishbone. Abscess in the right lower quadrant as described. Electronically signed by Henry Bryant 09/22/2018 7:19 AM
[2018-09-22] MEDS ORDERED: NS 1,000 ML IV SCH (07:30)
[2018-09-22 07:51] LABS: INR 1.05; PROTIME 14.2 Seconds (11.0-16.0)
[2018-09-22 07:52] LABS: PTT 30.8 Seconds (22.3-41.8)
[2018-09-22] MEDS ORDERED: POTASSIUM CHLORIDE 20 MEQ/SWI 20 MEQ/100 ML IVPB IV ONE (07:57)
--- NOTE | 2018-09-22 07:57 | Diag Imaging Result Doc PS360 ---
EXAM: CHEST-1 VIEW 09/22/2018 HISTORY: sepsis TECHNIQUE: Erect AP portable at 0802 COMMENT: The inspiration is better than on 05/31/2018 and the atelectasis which was previously present over the right base has resolved. Otherwise are has been no significant change. IMPRESSION: No acute disease. Electronically signed by Henry Bryant 09/22/2018 7:54 AM
[2018-09-22] MEDS ORDERED: ATIVAN IV ONE (08:14)
[2018-09-22] MEDS ORDERED: ZOSYN ONE (08:16)
--- NOTE | 2018-09-22 08:16 | GENERAL SURGERY CONSULTATION ---
DATE: 09/22/2018 CHIEF COMPLAINT: Right groin pain. HISTORY OF PRESENT ILLNESS: This is a 38-year-old white male who reports, over the past couple of days, some right lower quadrant and right flank pain that goes into his right testicle. It has gotten worse, so he seeks medical attention. He was worked up at the [facility] ED. CT scan shows a retroperitoneal abscess with a possible foreign body extending from his ilium into this collection. He does report a history of pancreatitis in the past. He is a drinker. He does drink beer daily. He also has tobacco dependence, smoking daily as well. He says he smokes a half a pack currently daily. He has COPD. PAST SURGICAL HISTORY: Apparently, he had a portion of his lung removed in the past. FAMILY HISTORY: Not known. SOCIAL HISTORY: He is a smoker. Drinks alcohol. He does take pain medicine. MEDICATIONS: Include lisinopril 20 mg daily, albuterol inhaler 2 puffs every 6 hours p.r.n., Norvasc 5 mg b.i.d., Coreg 25 mg b.i.d., Librium 10 mg t.i.d., Apresoline 75 mg every 8 hours, hydrocodone every 8 hours, Medrol Dosepak, and then [place] vitamins. All this was prescribed back in May, apparently when he was hospitalized. ALLERGIES: He denies any drug allergies. FAMILY PHYSICIAN: He has no family physician. PHYSICAL EXAMINATION: Vital Signs: He is afebrile, heart rate is 110, respiratory rate 21, blood pressure 147/105. Neck: No cervical adenopathy. Lungs: He has some end inspiratory wheeze. Heart: Regular rate and rhythm. Abdomen: Soft. He is tender in the right lower quadrant/flank area. Extremities: He does have palpable pedal pulses. Neurologic: He is awake and alert. LABORATORY DATA: White count is 10,800, hemoglobin 15.3. Sodium 126, potassium 3.2, chloride 84. ASSESSMENT: 1. Retroperitoneal phlegmon, possibly due to a foreign body. 2. Chronic obstructive pulmonary disease. 3. Tobacco dependence. 4. History of pancreatitis secondary to alcoholism. 5. Hypokalemia. 6. Hyponatremia. PLAN: The plan will be to take him to the operating room to open up his abscess and drain it, and whatever other indicated procedures. I have discussed this with him. He understands. cc: Leon Morales MD
[2018-09-22] MEDS ORDERED: DIPRIVAN 1% ONE (08:45)
[2018-09-22] MEDS ORDERED: QUELICIN (DOSE) ONE (08:46)
[2018-09-22] MEDS ORDERED: XYLOCAINE-MPF 2% ONE (08:46)
[2018-09-22] MEDS ORDERED: NORCURON ONE (08:47)
[2018-09-22] MEDS ORDERED: SODIUM CHLORIDE 0.9% 10 ML ONE (08:47)
[2018-09-22] MEDS ORDERED: ZOFRAN IV PRN (08:51)
[2018-09-22] MEDS ORDERED: ATIVAN IV PRN (08:55)
[2018-09-22] MEDS ORDERED: PRECEDEX ONE (08:57)
[2018-09-22] MEDS ORDERED: APRESOLINE IV PRN (09:00)
[2018-09-22] MEDS ORDERED: VENTOLIN HFA ONE (09:09)
[2018-09-22] MEDS ORDERED: DILAUDID ONE (09:34)
[2018-09-22] MEDS ORDERED: SENSORCAINE-MPF 0.5%/EPI 1:200,000 ONE (09:45)
[2018-09-22] MEDS ORDERED: ROBINUL ONE (09:50)
--- NOTE | 2018-09-22 10:02 | HISTORY AND PHYSICAL ---
PRIMARY CARE PHYSICIAN: None. CHIEF COMPLAINT: Right testicular pain. HISTORY OF PRESENT ILLNESS: Mr. Suazo is a 38-year-old, male who presented to the ER today with complaints of right testicular pain that radiates into the lower abdomen and the back region. The patient states his pain has been going on for about 3 to 4 days now. The patient states that the pain is a constant pain that never seems to go away. He states that it is sharp. The patient says that he has had some nausea and vomiting with this pain. He has also had some headaches. He denies any fever or chills. The patient states that he is a alcoholic and is not sure how much he drinks every day, but he drinks a large amount. The patient also has hypertension. The patient states he has had difficulty urinating for the past few days but he has not had any problems with defecating. He states there is no blood in his urine or his stools, or in his emesis. The patient does not remember eating or drinking anything different that would have caused this lower abdominal pain. He does not recall having any trauma. He does state that he did move some furniture a few days ago. PAST MEDICAL HISTORY: ETOH abuse, hypertension. PAST SURGICAL HISTORY: None. FAMILY HISTORY: Not pertinent. SOCIAL HISTORY: The patient states he lives with his mother. He does not work. He drinks daily, a lot. He does not know how much. He smokes, a 4th a pack of cigarettes every day. He denies any illicit drug use. ALLERGIES: No known drug allergies. HOME MEDICATIONS: 1. Albuterol inhaler 2 puffs every 6 hours as needed. 2. Norvasc 5 mg p.o. b.i.d. 3. Coreg 25 mg p.o. b.i.d. 4. Librium 10 mg p.o. t.i.d. 5. Hydralazine 75 mg p.o. q.8 hours. 6. Trumann 7.5 one tablet p.o. q.8 hours p.r.n. 7. Lisinopril 20 mg p.o. daily. 8. Multivitamin 1 tablet daily. LABORATORY AND DIAGNOSTICS: White blood cell count is 10.85, red blood cell count is 4.66, hemoglobin is 15.3, hematocrit is 42.7, platelet count is 210,000. PT is 14.2, INR is 1.05, PTT is 30.8. Sodium is 126, potassium is 3.2, chloride is 84, carbon dioxide is 28, anion gap is 14, BUN 7, creatinine is 0.4, estimated GFR is greater than 60, glucose is 108, calcium is 8.5. Total bilirubin is 0.5, AST is 37, ALT is 41, alkaline phosphatase is 90. Creatine kinase is 161, troponin is less than 0.01. Amylase is 40, lipase is 16. Plasma lactate is 1. Urinalysis shows trace protein, trace ketones, trace white blood cell count, 1+ bacteria. Urine toxicology is positive for oxycodone. CT of the abdomen shows perforated at the terminal ileum by a foreign body, possibly a fishbone, abscess in the right lower quadrant. Chest x-ray shows no acute disease. REVIEW OF SYSTEMS: A 10 point review of systems has been obtained and all are negative except what is stated above in the HPI. PHYSICAL EXAMINATION: VITAL SIGNS: Temperature 98.8 degrees, pulse rate 113, respiratory rate is 22, blood pressure is 135/111, weight is 223 pounds, height is 5 feet 6 inches. GENERAL: This is a 38-year-old, male. He is sitting up on the ER stretcher. He is complaining of pain to the lower abdomen and the right testicular area. He is well nourished and well developed. HEENT: Atraumatic, normocephalic. Pupils equal, round, reactive to light. Extraocular movements intact. Sclerae are reddened. Mucous membranes are dry. NECK: Supple. No lymphadenopathy. Trachea is midline. No JVD. No thyromegaly. No bruits. CARDIOVASCULAR: Regular rate and rhythm. No murmurs, gallops, or rubs appreciated. RESPIRATORY: Lung sounds are clear with equal chest excursion. Respirations are nonlabored. No accessory muscle usage. GI: Abdomen is tender and soft. Bowel sounds are present x4. NEUROLOGIC: Cranial nerves 2-12 intact. The patient is awake, alert, and oriented. Able to follow all commands. MUSCULOSKELETAL: Full distal strength noted. No abnormalities. No deformities. EXTREMITIES: No clubbing, no cyanosis, no edema. DP and PT pulses present and palpable. SKIN: Warm, dry, and intact. No rashes or bruises. No diaphoresis. ASSESSMENT AND PLAN: 1. Retroperitoneal abscess, possibly due to a foreign body. We are transferring this patient to [facility]. Dr. Morales has been consulted. He is going to do an exploratory surgery on the patient, will possibly have to do an appendectomy. We are going to place him on telemetry. We are going to repeat labs in the morning. We are going to provide with intravenous fluid hydration. He was given a dose of antibiotics in the emergency room. We are going to provide him with intravenous Zofran for nausea. 2. Chronic obstructive pulmonary disease. We will provide him with supplemental oxygen as needed and put him on breathing treatments as needed. 3. Alcohol abuse. We are going to start him on Ativan 1 mg intravenous every 4 hours as needed for possible withdrawal symptoms. The patient does state that he was able to drink yesterday. However, he does go into withdrawals within a 12 hour period. We will observe him for this. 4. Tobacco dependency. The patient states he only smokes about 5 to 6 cigarettes a day. We will provide him with smoking cessation and give him a nicotine patch if needed. 5. Hypokalemia. The patient was given a dose of potassium in the emergency room. I am going to start him on intravenous fluid hydration. We are going to also put him on a banana bag daily. We will observe his potassium. I have reordered labs for in the morning. 6. Hyponatremia. I have started him on intravenous fluid hydration and a banana bag daily. We are going to recheck labs in the morning. 7. Deep venous thrombosis prophylaxis. I have placed him with sequential compression devices. 8. Gastrointestinal prophylaxis. I will start him on Protonix 40 mg intravenous daily. We have transferred the patient to [facility]. He is going to have surgery today by Dr. Morales. I have placed him on intravenous fluid hydration, a banana bag daily, and Ativan as needed. I have also ordered some as needed hydralazine for his blood pressure. I am going to keep him NPO because he is having surgery today. We will let Dr. Morales evaluate this, whenever he can take oral medications. We will restart his home medications at that time. All other further recommendations pending hospital course and lab data. Dictated by RENEE Hernández for Armani Vaz MD cc: MD Leon Rivera MD MTDD
--- NOTE | 2018-09-22 10:08 | HISTORY AND PHYSICAL ---
ADDENDUM: Patient was seen and examined by myself. Full note dictated and discussed with nurse practitioner. The patient has already been seen by Dr. Morales, general surgery. He is planning on taking him to the OR. Mr. Suazo, unfortunately, has a longstanding history of alcoholism. Notes that if he does not drink alcohol, he will actually go into withdrawal in about 8 hours or so. Notes that he has to wake up in the middle of the night to drink. Given this fact, we are going to go ahead and give him 1 mg of IV Ativan and we will continue IV Ativan until he is able to take p.o. At that point, we will switch him to Librium. cc: Armani Vaz MD
[2018-09-22] MEDS: DUONEB (A & A) INH PRN ×3 (10:10→23:30)
--- NOTE | 2018-09-22 10:22 | OPERATIVE NOTE ---
PROCEDURE DATE: 09/22/2018 PROCEDURE: Incision and drainage retroperitoneal abscess. SURGEON: Leon Morales MD. BOOKING CLERK: Anitha Romero RN. PREOPERATIVE DIAGNOSIS: Retroperitoneal abscess. POSTOPERATIVE DIAGNOSIS: Retroperitoneal abscess. INDICATIONS: A 38-year-old with CT evidence of retroperitoneal abscess and increasing right lower quadrant pain. There was a question of foreign body. DESCRIPTION OF PROCEDURE: Satisfactory general endotracheal anesthesia was achieved. He then was prepped and draped in a sterile fashion. The patient had been bumped with the right side up. We then made an oblique incision in the right lower quadrant and dissected down to the external oblique muscle and aponeurosis. We spread it. We then spread the internal oblique muscle and exposed the transversus. When we poked through the transversus, we entered the abscess cavity. Cultures were taken. We spread the opening into the abscess cavity to admit our hand. We then palpated inside the cavity, and I could not palpate a foreign body. We then copiously irrigated out this cavity with saline. I placed a Howell drain within the cavity. I then allowed the transversus muscle to fall back together as well as the internal oblique muscle. We did place some 2-0 Polysorb [id number] stitches in the external oblique with a Howell coming out the mid aspect. We copiously irrigated the subcutaneous tissue, placed some 3-0 Polysorb in the subcutaneous tissue but left the mid section open where the Howell drain came out. We then stapled the ends of the skin incision leaving the middle open for about 4 to 5 cm so that the abscess cavity continued to drain via the Howell drain. A sterile dressing was applied. He tolerated it well and was sent to the recovery room in satisfactory condition. cc: Leon Morales MD [facility]
[2018-09-22 10:25] LABS: URINE SOURCE CATH
[2018-09-22 10:36] LABS: UR EPITHELIAL CELLS <10 /HPF (<10); URINE BACTERIA NEGATIVE /HPF; URINE RBC <10 /HPF (<10); URINE WBC <10 /HPF (<10)
[2018-09-22] MEDS: DILAUDID ONE ×2 (10:37→10:40)
[2018-09-22 10:58] LABS: BILIRUBIN URINE SMALL (NEGATIVE); BLOOD URINE NEGATIVE (NEGATIVE); COLOR YELLOW; GLUCOSE URINE NEGATIVE (NEGATIVE); KETONE URINE NEGATIVE (NEGATIVE); LEUKOCYTES URINE NEGATIVE (NEGATIVE); NITRITE URINE NEGATIVE (NEGATIVE); PROTEIN URINE 30 mg/dL (NEGATIVE); SP GRAVITY URINE 1.029; TURBIDITY URINE CLEAR (CLEAR); UROBILINOGEN URINE 8 mg/dL (NORMAL)
[2018-09-22] MEDS: NS 1,000 ML IV SCH ×2 (11:01→19:00)
[2018-09-22] MEDS: M.V.I.-12 10 ML, FOLIC ACID 1 MG, MAGNESIUM SULFATE 1 GM, THIAMINE 100 MG in NS 1,000 ML IV SCH (11:53)
[2018-09-22] MEDS: DILAUDID IV PRN ×3 (12:02→19:00)
[2018-09-22] MEDS: ZOSYN 3.375 GM in NS 50 ML IV SCH ×2 (12:10→19:01)
[2018-09-22] MEDS: PROTONIX IV SCH (12:10)
--- NOTE | 2018-09-22 14:00 | PROGRESS NOTE ---
DATE: 09/22/2018 Patient now status post surgery for intra-abdominal abscess with possible foreign body, although no foreign body was identified during the surgery. The patient is awake, alert, and with reasonable pain control postop. He is slightly tachycardic and tremulous, but awake, alert, oriented x3. Likely having some mild alcohol withdrawal but no evidence for severe delirium tremens at this point. We will adjust IV Ativan until he is able to take by mouth and then likely start Librium at that point. No wheezing to suggest COPD exacerbation. Nebs as needed. Repleting potassium and giving IV fluids for his hyponatremia. We will recheck sodium this afternoon to make sure we are not over correcting.
[2018-09-22] MEDS: ATIVAN IV PRN ×2 (14:06→19:00)
[2018-09-22] MEDS: NORCO-7.5 PO PRN ×2 (17:18→21:26)
[2018-09-23] MEDS: ZOSYN 3.375 GM in NS 50 ML IV SCH ×4 (01:10→18:18)
[2018-09-23] MEDS: DILAUDID IV PRN ×5 (01:10→20:46)
[2018-09-23] MEDS: ATIVAN IV PRN ×6 (01:19→22:02)
[2018-09-23] MEDS: DUONEB (A & A) INH PRN ×3 (03:37→23:41)
[2018-09-23] MEDS: NORCO-7.5 PO PRN ×5 (04:41→23:29)
[2018-09-23] MEDS: NS 1,000 ML IV SCH ×3 (04:58→18:18)
[2018-09-23 06:12] LABS: AGAP 7; ALBUMIN 3.2 g/dL (3.5-5.0); ALKALINE PHOSPHATASE 72 U/L (32-122); BUN 6 mg/dL (8-22); CALCIUM 8.1 mg/dL (8.8-10.2); CHLORIDE 94 mmol/L (98-107); CHOLESTEROL 139 mg/dL (0-200); COSMO 266; CREATININE 0.7 mg/dL (0.7-1.2); ESTIMATED GFR > 60; GLUCOSE 107 mg/dL (70-104); GOT 28 U/L (10-34); GPT 36 U/L (10-44); HDL 29 mg/dL (35-55); LDL 92 mg/dL; MAGNESIUM 1.9 mg/dL (1.5-2.7); POTASSIUM 4.3 mmol/L (3.5-5.1); SODIUM 134 mmol/L (136-145); TCO2 33 mmol/L (25-35); TOTAL BILIRUBIN 0.47 mg/dL (0.20-1.00); TOTAL IRON 15 ug/dL (53-167); TOTAL PROTEIN 6.4 g/dL (6.3-8.3); TRIGLYCERIDES 88 mg/dL (39-160); VLDL 18 mg/dL
[2018-09-23 06:56] LABS: HEMATOCRIT 37.9 % (42.0-52.0); HEMOGLOBIN 12.2 g/dL (14.0-18.0); MCH 32.3 PG (27-31); MCHC 32.2 g/dL (33-37); MCV 100.3 FL (81-99); RBC 3.78 XMIL (4.7-6.1); RDW 13.6 % (11.5-14.5); WBC 9.05 X1000 (4.8-10.8)
[2018-09-23 06:57] LABS: BASO# 0.01 X1000 (0.0-0.2); BASO% 0.1 % (0.0-0.8); EOS# 0.09 X1000 (0.0-0.7); IMM GRAN# 0.02 X1000 (0.0-0.04); IMM GRAN% 0.2 % (0.0-0.5); LYMPH# 0.96 X1000 (1.2-3.4); LYMPH% 10.6 % (20.5-51.1); MONO# 1.57 X1000 (0.11-0.59); MONO% 17.3 % (1.7-9.3); MPV 9.5 FL (7.4-10.4); NEUT% 70.8 % (42.2-75.2); PLT 182 X1000 (130-400)
[2018-09-23] MEDS: DILAUDID ONE (07:12)
[2018-09-23] MEDS: PROTONIX IV SCH (08:45)
[2018-09-23] MEDS: SODIUM CHLORIDE 0.9% INJ SCH (08:45)
[2018-09-23] MEDS: M.V.I.-12 10 ML, FOLIC ACID 1 MG, MAGNESIUM SULFATE 1 GM, THIAMINE 100 MG in NS 1,000 ML IV SCH (08:46)
--- NOTE | 2018-09-23 11:22 | EKG Report ---
Test Performed on : 09/22/2018 07:57:33 AM Test Reason : ER Blood Pressure : / mmHG Vent. Rate : 112 BPM Atrial Rate : 112 BPM P-R Int : 154 ms QRS Dur : 088 ms QT Int : 356 ms P-R-T Axes : 046 086 050 degrees QTc Int : 485 ms Sinus tachycardia. Otherwise normal ECG When compared with ECG of 30-MAY-2018 09:58, No significant change was found Unconfirmed Result
[2018-09-23] MEDS: NICODERM PATCH TD SCH (12:07)
--- NOTE | 2018-09-23 12:54 | PROGRESS NOTE ---
DATE: 09/23/2018 INTERVAL HISTORY: The patient complains of expected postop abdominal pain. No acute events overnight. He remains afebrile. The patient's withdrawal symptoms fairly minimal at this point. Some slight tremor and slight tachycardia, but no hallucination, seizures, or other signs of severe DT's. REVIEW OF SYSTEMS: Twelve point Review of Systems negative except as per interval history. LABORATORY DATA: WBC 9, hemoglobin 12.2, hematocrit 37.9, and platelets 182,000. Sodium 134, potassium 4.3, chloride 94, BUN 6, creatinine 0.7 and glucose 107. VITALS: T-max 98.9, pulse 100, respirations 19, blood pressure 130/106, and O2 saturation 97% on 3 L by nasal cannula. PHYSICAL EXAMINATION: General: No acute distress. Vitals: As above. HEENT: Normocephalic, atraumatic. Moist mucous membranes. No cervical adenopathy. Cardiovascular: Slightly tachycardic but regular. No murmurs, rubs or gallops. Pulmonary: Clear to auscultation bilaterally. Abdomen: Soft. Mild expected postop tenderness without rebound or guarding. Abdomen bandaged. Bowel sounds decreased. Extremities: Peripheral pulses intact. No clubbing or cyanosis. Neurologic: Cranial nerves grossly intact. No focal deficits. Minimal resting tremor primarily in the right hand. Psychiatric: Normal mood and affect. Awake, alert, and oriented x3. Skin: No new rashes or lesions identified. ASSESSMENT AND PLAN: 1. Intra-abdominal abscess status post surgery by Dr. Morales on 09/22. Doing well postoperatively. Afebrile. He has started on clear liquids. We will likely move out of ICU if that is okay with surgery. Continue antibiotics with Zosyn. 2. Alcohol abuse and withdrawal. Patient's withdrawal symptoms well controlled with p.r.n. Ativan. Can likely start weaning that down tomorrow. 3. Chronic obstructive pulmonary disease. No sign of exacerbation at this time. 4. Hypertension. Acceptable control. Currently off of home antihypertensives. If blood pressure becomes consistently and significantly elevated, we will begin restarting his home medications. 5. Chronic pain. Pain medication as per Surgery. 6. Hypokalemia improved with replacement. Monitor. 7. Hyponatremia still very slightly low, but has improved at acceptable rate with fluids overnight. Continue fluids and monitor.
--- NOTE | 2018-09-23 16:39 | GENERAL SURGERY PROGRESS NOTE ---
DATE: 09/23/2018 TIME: 11:07 a.m. SUBJECTIVE: He is postop day #1 after drainage of retroperitoneal abscess. OBJECTIVE: He is afebrile. Heart rate 104. Blood pressure 138/100. He is awake, alert, and oriented. He is taking liquids well. His bandage is removed and changed. He has really had no signs of alcohol withdrawal. His white count is down to 9,000. Hemoglobin 12.2. Sodium up to 134. Potassium 4.3. Chloride 94. BUN 6. Creatinine 0.7. PLAN: Will remove his [place]. Will cut his IV rate down. Will advance his diet. I think we can move him to a regular room. cc: Leon Morales MD
[2018-09-24] MEDS: ZOSYN 3.375 GM in NS 50 ML IV SCH ×4 (01:14→19:53)
[2018-09-24] MEDS: NS 1,000 ML IV SCH (02:14)
[2018-09-24] MEDS: DILAUDID IV PRN ×3 (02:20→11:33)
[2018-09-24] MEDS: NORCO-7.5 PO PRN ×5 (03:58→21:42)
[2018-09-24] MEDS: ATIVAN IV PRN ×4 (05:06→19:53)
[2018-09-24 06:54] LABS: BASO# 0.02 X1000 (0.0-0.2); BASO% 0.2 % (0.0-0.8); EOS# 0.13 X1000 (0.0-0.7); EOS% 1.5 % (0.0-10.0); HEMATOCRIT 37.2 % (42.0-52.0); HEMOGLOBIN 11.9 g/dL (14.0-18.0); IMM GRAN# 0.03 X1000 (0.0-0.04); IMM GRAN% 0.3 % (0.0-0.5); LYMPH# 0.99 X1000 (1.2-3.4); LYMPH% 11.5 % (20.5-51.1); MCH 32.2 PG (27-31); MCV 100.8 FL (81-99); MONO% 18.6 % (1.7-9.3); MPV 9.8 FL (7.4-10.4); NEUT# 5.82 X1000 (1.4-6.5); NEUT% 67.9 % (42.2-75.2); PLT 230 X1000 (130-400); RBC 3.69 XMIL (4.7-6.1); RDW 13.4 % (11.5-14.5); WBC 8.59 X1000 (4.8-10.8)
[2018-09-24 07:14] LABS: AGAP 7; BUN 4 mg/dL (8-22); CALCIUM 8.6 mg/dL (8.8-10.2); CHLORIDE 95 mmol/L (98-107); COSMO 270; CREATININE 0.6 mg/dL (0.7-1.2); ESTIMATED GFR > 60; GLUCOSE 126 mg/dL (70-104); POTASSIUM 4.2 mmol/L (3.5-5.1); SODIUM 136 mmol/L (136-145); TCO2 34 mmol/L (25-35)
[2018-09-24] MEDS: M.V.I.-12 10 ML, FOLIC ACID 1 MG, MAGNESIUM SULFATE 1 GM, THIAMINE 100 MG in NS 1,000 ML IV SCH (08:12)
[2018-09-24] MEDS: SODIUM CHLORIDE 0.9% INJ SCH (08:12)
[2018-09-24] MEDS: PROTONIX IV SCH ×2 (08:12→11:35)
[2018-09-24] MEDS: NICODERM PATCH TD SCH (08:12)
[2018-09-24] MEDS: DUONEB (A & A) INH PRN ×3 (08:37→15:43)
--- NOTE | 2018-09-24 14:03 | GENERAL SURGERY PROGRESS NOTE ---
DATE: 09/24/2018 Mr. Bonds is afebrile, heart rate 116, blood pressure 153/99. He is eating. Says he is passing flatus but has had no bowel movement. White count is normal. Chemistry is okay. His culture is growing E coli sensitive to Zosyn. Today we will start advancing his drain. Hopefully over the next couple of days the drain will be out and he will be able to go home to continue on p.o. antibiotics. If however he develops a fecal fistula we may have to do something different. cc: Leon Morales MD
[2018-09-24] MEDS ORDERED: LIBRIUM PO SCH (17:00)
--- NOTE | 2018-09-24 17:28 | PROGRESS NOTE ---
DATE: 09/24/2018 INTERVAL HISTORY: No acute events overnight. His pulse has been 100-teens and appears sinus on EKG and monitor. His electrolyte disturbance has resolved. Wound culture is growing Escherichia coli. The patient states he has been passing gas. Has not had a bowel movement. He denies any vomiting, though he did have nausea. VITAL SIGNS: Temperature 97.6 degrees, pulse 116, respiratory rate 18, blood pressure 120/100, saturating 100% on 3 L nasal cannula. PHYSICAL EXAMINATION: General: Morbidly obese, not in any acute distress. HEENT: Oral cavity has missing teeth. Lungs: Air entry bilaterally equal. No wheeze, rhonchi, crackles. Cardiovascular: S1, S2 normal. No murmur, rub, or gallop. Breasts: He has gynecomastia. Abdomen: He has abdominal obesity. He has a bandage in the right lower quadrant with marked tenderness. I could not appreciate bowel sounds. Extremities: He does not have lower extremity edema. Neurologic: He is alert and oriented x3. Does not appear tremulous. LABS: Suggestive of macrocytic anemia, normal platelet count, resolution of hyponatremia and hypochloremia, normal kidney function. Wound culture from intra-abdominal abscess is growing Escherichia coli. IMAGING: No new imaging. ASSESSMENT AND PLAN: 1. Retroperitoneal abscess, unclear why he developed it, status post laparotomy and drainage on September 22, 2018. Continue mechanical soft diet, intravenous Zosyn for E. coli. After discussing with surgery, my plan is to downgrade his antibiotics to intravenous cefazolin. 2. Alcohol abuse with mild withdrawal as patient has been experiencing tremulousness. Continue intravenous Ativan as needed and I will start him on chlordiazepoxide. 3. Chronic obstructive pulmonary disease without any acute exacerbation. Continue albuterol ipratropium nebulization as needed. I will resume his home antihypertensive medications as tolerated. Continue [place] as needed for pain and nicotine patch for tobacco abuse. 4. Disposition. Awaiting resumption of bowel function. Plan of care discussed with the patient. His questions have been answered. cc: Mark Gay MD
[2018-09-25] MEDS: ATIVAN IV PRN (01:34)
[2018-09-25] MEDS: ZOSYN 3.375 GM in NS 50 ML IV SCH ×2 (01:34→07:43)
[2018-09-25 06:21] LABS: BASO# 0.03 X1000 (0.0-0.2); BASO% 0.3 % (0.0-0.8); EOS# 0.21 X1000 (0.0-0.7); EOS% 2.1 % (0.0-10.0); HEMATOCRIT 38.9 % (42.0-52.0); HEMOGLOBIN 12.7 g/dL (14.0-18.0); IMM GRAN# 0.03 X1000 (0.0-0.04); IMM GRAN% 0.3 % (0.0-0.5); LYMPH# 0.96 X1000 (1.2-3.4); LYMPH% 9.7 % (20.5-51.1); MCH 32.1 PG (27-31); MCHC 32.6 g/dL (33-37); MCV 98.2 FL (81-99); MONO# 1.57 X1000 (0.11-0.59); MONO% 15.9 % (1.7-9.3); MPV 9.4 FL (7.4-10.4); NEUT# 7.05 X1000 (1.4-6.5); NEUT% 71.7 % (42.2-75.2); PLT 294 X1000 (130-400); RBC 3.96 XMIL (4.7-6.1); RDW 13.2 % (11.5-14.5); WBC 9.85 X1000 (4.8-10.8)
[2018-09-25 06:45] LABS: AGAP 10; BUN 3 mg/dL (8-22); CALCIUM 9.4 mg/dL (8.8-10.2); CHLORIDE 97 mmol/L (98-107); COSMO 273; CREATININE 0.4 mg/dL (0.7-1.2); ESTIMATED GFR > 60; GLUCOSE 108 mg/dL (70-104); POTASSIUM 3.8 mmol/L (3.5-5.1); SODIUM 138 mmol/L (136-145); TCO2 31 mmol/L (25-35)
[2018-09-25] MEDS: DUONEB (A & A) INH PRN (07:52)
[2018-09-25 07:53] VITALS: BP 184/120
--- NOTE | 2018-09-25 07:53 | GENERAL SURGERY PROGRESS NOTE ---
DATE: 09/25/2018 Mr. Suazo pulled out his drain last night. He has pulled out multiple IVs. He seems to be becoming more nervous and agitated. I would say that he is probably having some withdrawal symptoms. I will switch him to Augmentin 875 b.i.d. and I am content with him being on that. I will leave treatment of his withdrawal symptoms to the medical service. Certainly, from his operative point of view, he could be discharged. He is on a regular diet and I think his bowel activity is adequate. If he is discharged, he will return to see me in followup in a week. cc: Leon Morales MD
[2018-09-25] MEDS: NORCO-7.5 PO PRN (07:57)
[2018-09-25] MEDS: NICODERM PATCH TD SCH (07:58)
[2018-09-25] MEDS ORDERED: PROTONIX PO SCH (09:00)
[2018-09-25] MEDS ORDERED: AUGMENTIN PO SCH (09:00)
--- NOTE | 2018-09-25 12:18 | DISCHARGE SUMMARY ---
ADMISSION DATE: 09/22/2018 DISCHARGE DATE: 09/25/2018 DISCHARGE DISPOSITION: Home. DISCHARGE CONDITION: He is tachycardic with heart rate 108 per minute because of alcohol withdrawal but normotensive. He is alert and oriented x3, but appears anxious. Surgical team has recommended outpatient management. However, he may in future need surgery if he develops fistula involving skin and intestines. DISCHARGE DIAGNOSES: 1. Retroperitoneal abscess of unclear source with possible intestinal perforation. 2. Acute alcohol withdrawal with mild delirium tremens. 3. Essential hypertension. OTHER DIAGNOSES: 1. Alcohol abuse and use disorder with about 6 to 8 cans of beer daily drinking since many years. 2. Active tobacco abuse. 3. History of COPD. 4. Essential hypertension. CONSULTATIONS AND PROCEDURES DURING HOSPITAL ADMISSION: Dr. Leon Morales. He underwent incision and drainage of retroperitoneal abscess. DISCHARGE MEDICATIONS: Hydralazine 75 mg every 8 hours, Augmentin 875 mg b.i.d. 20 tablets have been prescribed, carvedilol 25 mg b.i.d., 60 tablets have been prescribed, multivitamin with minerals 1 tablet daily, 30 tablets have been prescribed, chlordiazepoxide 10 mg capsules. He was advised to take 20 mg t.i.d. for 3 days, 10 mg t.i.d. for 3 days, 10 mg b.i.d. for 3 days, 10 mg daily for 3 days and stop MiraLAX 17 g daily, 10 powders have been prescribed, [place] 7.5 every 8 hours as needed for abdominal pain, 15 tablets have been prescribed, amlodipine 5 mg b.i.d., albuterol inhaler 2 puffs inhaled every 6 hours as needed for shortness of breath. VITALS: At the time of discharge, temperature 98.4 degrees, pulse 108 on bedside examination. Respiratory rate 18, blood pressure 180/110, saturating 95% on room air. PHYSICAL EXAMINATION: General: He does not appear in any acute distress. He states he is anxious because he has not smoked and has not drunk in a while. Oral cavity is moist. Lungs: Air entry bilaterally equal no wheeze, rhonchi, crackles. Cardiovascular: S1, S2 normal. No murmur, rub, or gallop. Tachycardic, regular. Abdomen: Soft. Mild tenderness in the right lower quadrant, but there is a dressing application. He also has abdominal obesity and gynecomastia. Active bowel sounds. Extremity: No lower extremity edema. MICROBIOLOGY: Wound culture is growing Escherichia coli. LABS: During hospital admission and discharge, hemoglobin 12.7, platelet 294,000, BUN 3, creatinine 0.4. IMAGING DURING HOSPITAL ADMISSION: Abdomen pelvis CT on September 22 had perforation of terminal suspected perforation of terminal ileum by foreign body, possibly a fishbone, and development of abscess in the right lower quadrant. HOSPITAL COURSE SUMMARY: Mr. Suazo is a 38-year-old man with past medical history of tobacco abuse and alcohol abuse as well as essential hypertension, who came into the emergency room with complaints of right-sided groin pain radiating to the back of about 3 to 4 days duration, which was constant and never went away, associated with nausea and episode of vomiting. He did not have any fever or chills. He underwent a CT scan of the abdomen and pelvis which had detected a large retroperitoneal abscess of about 7 x 7 cm in right lower quadrant and so he was started with intravenous fluids, intravenous Zosyn, and surgical team was consulted. He underwent incision and drainage of the retroperitoneal abscess, though no intervention or any testings were performed at that time. The abscess fluid grew Escherichia coli which was sensitive to cefazolin. His antibiotics were initially at the time of discharge changed from intravenous Zosyn to oral Augmentin. During hospital post surgery, he had started becoming delirious due to alcohol withdrawal and was also started on as needed Ativan as well as Librium. However, he had started becoming more agitated, anxious, and he had started pulling out IV lines and he also pulled out his abdominal drain which was placed. Surgical team had dressed his wound after he pulled out his drain and no other surgical intervention were planned acutely. It was decided to discharge patient home on oral antibiotics and have outpatient followup with Dr. Morales where he would evaluate him and if he is developing a fistula connecting intestine and skin, then at that point, he would need further surgical exploration. Plan of care was extensively discussed with the patient. He agreed to it. I had counseled him about stopping his alcohol and all of his questions were satisfactorily answered. I will call one of the contacts listed and inform them of patient's course. More than 30 minutes spent in preparing this discharge summary. I called all the contacts listed in the chart and unfortunately, was not able to get hold of any of them before discharge. Patient also told me that he could not reach out to any of his family/friends and he wanted to go home. cc: Mark Gay MD MTDD
== END 2018-09-25 09:54 | disposition home or self-care (01) | DRG 357 ==
LOC: P.ED 05:20 → SURHOLD 08:06 → SUATTDRO 08:06 → ICU 10:07 → 4N 09-23 16:59
PROVIDERS: ATTEND Internal Medicine

== ENCOUNTER 2019-03-10 23:46 | Inpatient (IN) ==
[2019-03-11] MEDS ORDERED: DUONEB (A & A) INH ONE (00:11)
[2019-03-11] MEDS ORDERED: SOLU-MEDROL IV ONE (00:12)
[2019-03-11] MEDS ORDERED: LEVAQUIN 750 MG/D5W 750 MG/150 ML IVPB IV ONE (00:13)
[2019-03-11 00:32] LABS: ALLEN TEST YES; BLOOD TYPE ARTERIAL; HCO3-(ACT) 27.7 mmoll (20.0-26.0); METHB 0.9 % (0.0-1.5); O2(CT) 17.3 mL/dL (15.0-23.0); PO2(98.6) 60 mmHg (60-100); SAMPLE BLOOD; SAO2 93.8 % (95.0-100.0); THB 14.4 g/dL (11.5-17.4); pH(98.6) 7.24 (7.35-7.45)
[2019-03-11 00:35] LABS: MODALITY CANNULA; PCO2(98.6) 80 mmHg (35-45)
[2019-03-11 00:36] LABS: O2HB 85.3 % (95.0-99.0)
[2019-03-11 00:47] LABS: BASO% 2.7 % (0.0-0.8); EOS# 0.14 X1000 (0.0-0.7); EOS% 1.9 % (0.0-10.0); HEMATOCRIT 43.9 % (42.0-52.0); HEMOGLOBIN 14.2 g/dL (14.0-18.0); IMM GRAN% 1.4 % (0.0-0.5); LYMPH# 1.75 X1000 (1.2-3.4); LYMPH% 23.8 % (20.5-51.1); MCH 31.8 PG (27-31); MCHC 32.3 g/dL (33-37); MCV 98.4 FL (81-99); MONO# 1.48 X1000 (0.11-0.59); MONO% 20.2 % (1.7-9.3); MPV 9.9 FL (7.4-10.4); NEUT# 3.67 X1000 (1.4-6.5); PLT 337 X1000 (130-400); RBC 4.46 XMIL (4.7-6.1); RDW 13.3 % (11.5-14.5); WBC 7.34 X1000 (4.8-10.8)
[2019-03-11 00:52] LABS: INR 0.98; PROTIME 13.1 Seconds (11.0-16.0)
[2019-03-11 00:59] LABS: PTT < 20.0 Seconds (22.3-41.8)
[2019-03-11 01:07] LABS: AGAP 13; ALB/GLOB RATIO 1.1; ALBUMIN 3.9 g/dL (3.5-5.0); ALKALINE PHOSPHATASE 130 U/L (32-122); BUN 9 mg/dL (8-22); CALCIUM 9.6 mg/dL (8.8-10.2); CHLORIDE 96 mmol/L (98-107); COSMO 276; CREATININE 0.8 mg/dL (0.7-1.2); ESTIMATED GFR > 60; GLUCOSE 127 mg/dL (70-104); GOT 88 U/L (10-34); GPT 216 U/L (10-44); LIPASE 36 U/L (13-60); POTASSIUM 4.5 mmol/L (3.5-5.1); SODIUM 138 mmol/L (136-145); TCO2 29 mmol/L (25-35); TOTAL PROTEIN 7.4 g/dL (6.3-8.3)
[2019-03-11] MEDS ORDERED: TORADOL IV ONE (01:09)
--- NOTE | 2019-03-11 01:21 | PROVIDER DOCUMENTATION ---
This chart was entered by Katie Robertson Scribe, acting as scribe for Shawn Aquino MD. HPI-Respiratory General - General Stated Complaint: Asthma/ABD Pain Time Seen by Provider: 03/11/19 00:02 Source: patient (f) Allergies/Adverse Reactions: Patient Allergies Allergy/AdvReac Type Severity Reaction Status Date / Time No Known Allergies Allergy Verified 03/11/19 00:39 Home Medications: Home Medication List Medication Instructions Recorded Confirmed Last Taken Type Albuterol Sulfate Inhaler 2 puff INH Q6H PRN PRN #1 inhaler 06/01/18 Unknown Rx [Ventolin Hfa] Amlodipine [Norvasc] 5 mg PO BID #60 tab 06/01/18 Unknown Rx Carvedilol [Coreg] 25 mg PO BID #60 tab 06/01/18 Unknown Rx Hydralazine [Apresoline] 75 mg PO Q8HR tab 06/01/18 Unknown Rx Mvi/Minerals Chew [[place] 1 ea PO DAILY #30 tab 06/01/18 Unknown Rx Complete] Amoxicillin/Pot Clavulanate 875 mg PO BID #20 tab 09/25/18 Unknown Rx [Augmentin] Chlordiazepoxide [Librium] 10 mg PO TID #36 cap 09/25/18 Unknown Rx Hydrocodone/APAP 7.5 mg/325 mg 1 ea PO Q8H PRN PRN #15 tab 09/25/18 Unknown Rx [[place]-7.5] Polyethylene Glycol 3350 [Miralax] 17 gm PO DAILY #10 powd.pack 09/25/18 Unknown Rx Polyethylene Glycol 3350 [Miralax] 17 gm PO DAILY #30 powd.pack 03/08/19 Unknown Rx - History of Present Illness-Resp Nature of Presenting Problem: pt is a 38 yr old male presenting via EMS with complaint of shortness of breath chest pain with inspiration and diffuse abdominal pain and distention. pt admits hx of COPD, asthma and pancreatitis. pt reports he drank 1 beer tonight "to help the pain" pt had 1 albuterol neb tx enroute to ER via EMS. pt admits cough, no fever/chills. pt is on 2l oxygen via [place] with Spo2 sat of 98% Quality of Pain: reports: fullness, pressure Severity in ED: reports: severe Onset/Duration: reports: gradual Timing: reports: changing over time, getting worse Exposure: reports: unknown cause Cough Quality/Degree: reports: moderate, dry cough Episode Frequency: frequent episodes Current Respiratory Medication Therapy: Initiated albuterol (neb tx enroute-no relief) Modifying Factors: improves with: exertion (worsens), albuterol nebulizer (no relief), oxygen (no relief) Associated Symptoms: reports: cough, hurts to breathe, shortness of breath. denies: dizziness, fever/chills, nasal congestion Similar Symptoms Previously?: Yes Recently seen or treated by another doctor?: No Review of Systems - Adult - REVIEW OF SYSTEMS - ADULT Constitutional: reports: fatique. denies: chills, fever Eyes: reports: no symptoms reported Ears, Nose, Mouth & Throat: reports: no symptoms reported Cardiovascular: reports: chest pain. denies: palpitations, syncope Respiratory: reports: cough, dyspnea on exertion, shortness of breath, wheezing Gastrointestinal: reports: abdominal pain. denies: diarrhea, nausea, vomiting Genitourinary: denies: dysuria, frequency, flank pain Musculoskeletal: denies: back pain, muscle aches, muscle weakness Integumentary: reports: no symptoms reported Neurological: denies: dizziness/vertigo, headache/migraines, syncope Psychiatric: reports: alcohol/drug dependence Endocrine: reports: no symptoms reported Hematologic/Lymphatic: reports: no symptoms reported Allergic/Immunologic: reports: no symptoms reported All Other Systems: Reviewed and Negative Past History - Adult - PAST MEDICAL HISTORY-ADULT Review of Records: reports: Old Records Reviewed, Nursing Assessment Review, Medications Reviewed, Social history reviewed & non-contributory. Major Childhood Illnesses: reports: denies history Cardiovascular: reports: denies history Respiratory: reports: COPD Gastrointestinal: reports: denies history, pancreatitis Obstetrical/Gynecological: reports: denies history Genitourinary: reports: denies history Musculoskeletal: reports: denies history Neurological: reports: denies history Endocrine/Immune: reports: denies history Other Conditions: reports: denies history - PRIOR SURGERIES/PROCEDURES Surgical/Procedure History: reports: other (lung removed) - IMMUNIZATION STATUS Childhood Immunizations: See Nurse Assessment Flu Vaccine: See Nurse Assessment - FAMILY HISTORY Family History: reviewed, not pertinent - SOCIAL HISTORY Smoking: cigarettes Provider spent 3-5 mins advising pt. on dangers of tobacco.: Discussed manners to quit use, and f/u contacts for add'l counseling. Substance Use: alcohol Living Situation: family Physical Exam-General - PHYSICAL EXAM-ADULT Initial Vital Signs Reviewed: Yes - CONSTITUTIONAL General Appearance: alert, mild distress (pt very appearnce, speaking in short, broken sentences), obese - EYES Eyes: PERRL/EOMI - HEAD, EARS, NOSE, MOUTH & THROAT HENMT: normocephalic/atraumatic, moist mucous membranes, normal ENT inspection - NECK Neck: non-tender, full range of motion, supple, normal inspection - RESPIRATORY Respiratory: respiratory distress, decreased breath sounds (poor inspiratory effort), wheezing (diffuse in/ex wheezing), increased rate, other (short/broken sentences 98% Spo2 sat on 2lpm [place]) - CARDIOVASCULAR Cardiovascular: normal peripheral pulses, regular rate, rhythm, no edema - GASTROINTESTINAL (ABDOMEN) Abdominal Exam: normal bowel sounds, non tender, soft, distended. negative: rigid, tenderness - LYMPHATIC Lymphatic: no adenopathy - MUSCULOSKELETAL Back Exam: normal inspection Extremity: normal range of motion, non-tender, normal inspection - HEART Score HEART Score: History: Moderately Suspicious HEART Score: ECG: Non-Specific Repolarization Disturbance/LBBB/PM HEART Score: Age: < or = 45 Years HEART Score: Risk Factors for Atherosclerotic Disease: 1 or 2 Risk Factors HEART Score: Troponin: < or = Normal Limit Total HEART Score:: 3 Progress - PLAN OF CARE/RESULTS Progress/Plan/Lab Results: Vital Signs - 8 hr 03/11/19 00:20 03/11/19 00:27 Temperature 99.0 F Pulse Rate 126 H 121 H Respiratory Rate 20 18 Blood Pressure 119/83 O2 Sat by Pulse Oximetry 95 93 L Laboratory Results - last 24 hr 03/11/19 03/11/19 03/11/19 00:14 00:15 00:15 WBC 7.34 RBC 4.46 L Hgb 14.2 Hct 43.9 MCV 98.4 MCH 31.8 H MCHC 32.3 L RDW Std Deviation 13.3 Plt Count 337 MPV 9.9 Immature Gran % (Auto) 1.4 H Neut % (Auto) 50.0 Lymph % (Auto) 23.8 Clinch % (Auto) 20.2 H Eos % (Auto) 1.9 Baso % (Auto) 2.7 H Immature Gran # (Auto) 0.10 H Neut # (Auto) 3.67 Lymph # (Auto) 1.75 Clinch # (Auto) 1.48 H Eos # (Auto) 0.14 Baso # (Auto) 0.20 PT INR PTT (Actin FS) Specimen Type ARTERIAL Sample Site R RADIAL pH 7.24 L pCO2 80 H* pO2 60 HCO3 27.7 H Base Excess 4.0 H Oxyhemoglobin 85.3 L* ABG O2 Sat (Calculated) 17.3 ABG O2 Saturation 93.8 L ABG Carboxyhemoglobin 8.20 H* ABG Methemoglobin 0.9 John[place] Test YES A-a O2 Difference 68.0 Total Hemoglobin 14.4 Lactate 1.60 Liter Flow 3.0 Blood Gas Modality CANNULA FiO2 % 32.0 Sodium 138 Potassium 4.5 Chloride 96 L Carbon Dioxide 29 Anion Gap 13 BUN 9 Creatinine 0.8 Estimated GFR/1.73 m2 > 60 BUN/Creatinine Ratio 11 Glucose 127 H Calculated Osmolality 276 Calcium 9.6 Total Bilirubin 0.30 AST 88 H ALT 216 H Alkaline Phosphatase 130 H Troponin T High Sens Total Protein 7.4 Albumin 3.9 Globulin 3.5 Albumin/Globulin Ratio 1.1 Lipase 36 Plasma Lactate 03/11/19 03/11/19 03/11/19 00:15 00:15 00:15 WBC RBC Hgb Hct MCV MCH MCHC RDW Std Deviation Plt Count MPV Immature Gran % (Auto) Neut % (Auto) Lymph % (Auto) Clinch % (Auto) Eos % (Auto) Baso % (Auto) Immature Gran # (Auto) Neut # (Auto) Lymph # (Auto) Clinch # (Auto) Eos # (Auto) Baso # (Auto) PT 13.1 INR 0.98 PTT (Actin FS) < 20.0 L Specimen Type Sample Site pH pCO2 pO2 HCO3 Base Excess Oxyhemoglobin ABG O2 Sat (Calculated) ABG O2 Saturation ABG Carboxyhemoglobin ABG Methemoglobin Johnathon Test A-a O2 Difference Total Hemoglobin Lactate Liter Flow Blood Gas Modality FiO2 % Sodium Potassium Chloride Carbon Dioxide Anion Gap BUN Creatinine Estimated GFR/1.73 m2 BUN/Creatinine Ratio Glucose Calculated Osmolality Calcium Total Bilirubin AST ALT Alkaline Phosphatase Troponin T High Sens 20 H Total Protein Albumin Globulin Albumin/Globulin Ratio Lipase Plasma Lactate 1.5 Orders Category Date Time Status CHEST-PORTABLE [RAD] Stat Exams 03/11/19 00:12 Taken ABG [RESP] Routine Lab 03/11/19 00:14 Completed BLOOD CULTURE [BLDCUL] Stat Lab 03/11/19 00:15 Results CBC WITH DIFF [HEME] Stat Lab 03/11/19 00:15 Completed CMP [COMPREHENSIVE METABOLIC PANEL] [CHEM] Stat Lab 03/11/19 00:15 Completed LACTATE, PLASMA [CHEM] Stat Lab 03/11/19 00:15 Completed LIPASE [CHEM] Stat Lab 03/11/19 00:15 Completed PROTIME WITH INR [COAG] Stat Lab 03/11/19 00:15 Completed PTT [COAG] Stat Lab 03/11/19 00:15 Completed TROPONIN T HIGH SENSITIVITY Stat Lab 03/11/19 00:15 Completed Albuterol 2.5MG/Ipratrop 0.5MG [Duoneb (A & A)] Med 03/11/19 00:11 Discontinued 3 ml INH NOW ONE Ketorolac [Toradol] Med 03/11/19 01:09 Discontinued 30 mg IV NOW ONE Levofloxacin 750 mg/D5w [Levaquin 750 mg/D5w] Med 03/11/19 00:13 Active 750 mg in 150 ml IV NOW Methylprednisolone Sod Succ [Solu-Medrol] Med 03/11/19 00:12 Discontinued 125 mg IV NOW ONE Aerosol Treatments Routine Oth 03/11/19 00:12 Active Aerosol Treatments Stat Oth 03/11/19 00:12 Active EKG [EKG] Stat Ther 03/11/19 00:13 Ordered ABG showed respiratory acidosis with metabolic compensation. He has likely end stage COPD now on supplemental O2 to 4 L to treat type 2 respiratory failure. Given duoneb and solu-medrol and levaquin for empiric therapy. CXR shows evidence of a left lower lobe pneumonia. Lactic acid and WBC benign. Otherwise, cardiac work up negative. Troponin benign. Proceed to admit with hospitalist Dr. Araya. Patient made aware and given toradol for pain control. Patient agrees with plan of care. Result Diagrams: 03/11/19 00:15 03/11/19 00:15 - XRAY 1 XRAY Study: Chest Impression: Abnormal (LLL consolidation consistent with pneumonia), See EMR Report Departure - Departure Date of Disposition Decision: 03/11/19 Time of Disposition Decision: 01:17 DIAGNOSIS: Left lower lobe pneumonia, COPD exacerbation, Acute respiratory failure, Tobacco use, Respiratory acidosis Disposition: ADMITTED INPATIENT 09 Certified Medical Emergency: Emergent Condition: Fair - Critical Care Note This patient required my direct & personal management of CC.: No Attestation - Physician/ ESTEPHANIE Attestation Patient care was provided by Advanced Practice Provider:: No The physician spent face to face time with patient:: Yes Advanced Practice Provider documentation review:: Supervising physician onsite and consulted in the evaluation and care of this patient. The physician did have a face to face encounter with the patient. This chart was documented by the indicated scribe, (Katie Robertson Scribe) and accurately reflects the services I performed and decisions made by me, Shawn Aquino MD, as attested by the provider's signature.
[2019-03-11] MEDS ORDERED: ATIVAN IV ONE (01:47)
[2019-03-11] MEDS ORDERED: NS 1,000 ML IV SCH (02:49)
[2019-03-11] MEDS ORDERED: ZOFRAN IV PRN (02:49)
[2019-03-11] MEDS: DUONEB (A & A) INH SCH ×4 (03:30→19:45)
[2019-03-11] MEDS: MORPHINE IV PRN ×4 (04:08→23:55)
[2019-03-11] MEDS: ATIVAN IV PRN ×4 (04:10→21:02)
--- NOTE | 2019-03-11 06:08 | HISTORY AND PHYSICAL ---
PRIMARY CARE PHYSICIAN: None. CHIEF COMPLAINT: Shortness of breath x6 days. HISTORY OF PRESENTING ILLNESS: This is a 38-year-old male with a history of COPD, cirrhosis, chronic pancreatitis, who had presented to the emergency department with 6 days history of worsening shortness of breath. The patient states that he was having trouble breathing and nothing was helping. He was seen in the ER. It seemed that he was having exacerbation of his COPD. He was started on nebs treatment, IV Solu-Medrol. He will require admission for further management. At the time of my examination, patient denied any headache, fever, nausea, vomiting, diarrhea, hemoptysis, melena, but complained of shortness of breath. PAST MEDICAL HISTORY: Includes COPD, cirrhosis, chronic pancreatitis. PAST SURGICAL HISTORY: I D of retroperitoneal abscess. ALLERGIES: No known drug allergies. CURRENT MEDICATIONS: He does not recall and nursing staff will reconcile. SOCIAL HISTORY: A 20+ pack years history of smoking. History of alcohol use daily. Denies any illicit drug use. FAMILY HISTORY: No history of coronary disease. REVIEW OF SYSTEMS: Fourteen-point review of system is as in HPI. Other systems negative physical. PHYSICAL EXAMINATION: GENERAL: Cooperative, friendly male. He is resting more comfortably now. VITAL SIGNS: Temperature 99 degrees, pulse 126, respirations 20, blood pressure 119/83. HEENT: Atraumatic, normocephalic. Extraocular movements intact. PERRLA. NECK: No masses. CHEST: Rhonchi. CARDIOVASCULAR: Regular rate and rhythm. ABDOMEN: Soft positive bowel sounds. EXTREMITIES: Trace edema. NEUROLOGIC: He is awake, alert, oriented x3. : No bladder distention. SKIN: Warm laboratory. LABORATORIES AND STUDIES: WBC 7.34, hemoglobin 14.2, hematocrit 43.9, platelets 337,000. Sodium 138, potassium 4.5, chloride 96, CO2 is 29, BUN is 9, creatinine 0.8, glucose 127, AST 88, ALT 216, alkaline phosphatase 130. ASSESSMENT: This is a 38-year-old male with a history of COPD, cirrhosis, chronic alcoholism, who had presented to emergency department with 6 days history of worsening shortness of breath. He was brought to the emergency department. It seems that he was having exacerbation of COPD. Subsequently, he will require admission for further management. 1. Acute chronic obstructive pulmonary disease exacerbation. 2. Chronic alcoholism. 3. Cirrhosis by history. PLAN: 1. We will admit patient to medical floor with telemetry. 2. We will continue with DuoNeb, IV Solu-Medrol, and IV antibiotics. 3. We will monitor for withdrawal symptoms and start patient on Ativan. 4. We will put patient on DVT prophylaxis with SCD. 5. We will continue to follow, reassess, and make further recommendation based on patient's clinical course. cc: Tutu Araya MD
--- NOTE | 2019-03-11 06:35 | Diag Imaging Result Doc PS360 ---
CHEST-PORTABLE - 03/11/2019 INDICATION: sob COMPARISON: 03/08/2019 FINDINGS: Stable mild right hemidiaphragm elevation. The lungs are clear. Heart size is normal. No pneumothorax or pleural effusion. IMPRESSION: Negative exam. Electronically signed by Rene Forbes 03/11/2019 6:32 AM
[2019-03-11 10:08] LABS: BASO# 0.04 X1000 (0.0-0.2); BASO% 0.6 % (0.0-0.8); EOS# 0.02 X1000 (0.0-0.7); EOS% 0.3 % (0.0-10.0); HEMATOCRIT 42.5 % (42.0-52.0); HEMOGLOBIN 13.9 g/dL (14.0-18.0); IMM GRAN# 0.07 X1000 (0.0-0.04); IMM GRAN% 1.1 % (0.0-0.5); LYMPH# 0.58 X1000 (1.2-3.4); LYMPH% 8.7 % (20.5-51.1); MCH 32.6 PG (27-31); MCHC 32.7 g/dL (33-37); MCV 99.5 FL (81-99); MONO# 0.15 X1000 (0.11-0.59); MONO% 2.3 % (1.7-9.3); MPV 9.7 FL (7.4-10.4); PLT 325 X1000 (130-400); RBC 4.27 XMIL (4.7-6.1); RDW 13.5 % (11.5-14.5); WBC 6.66 X1000 (4.8-10.8)
[2019-03-11 10:13] LABS: AGAP 12; BUN 9 mg/dL (8-22); CALCIUM 9.3 mg/dL (8.8-10.2); CHLORIDE 95 mmol/L (98-107); COSMO 274; CREATININE 0.8 mg/dL (0.7-1.2); ESTIMATED GFR > 60; GLUCOSE 164 mg/dL (70-104); SODIUM 136 mmol/L (136-145); TCO2 29 mmol/L (25-35)
[2019-03-11] MEDS ORDERED: HALDOL IV ONE (10:27)
[2019-03-11] MEDS: SOLU-MEDROL IV SCH ×2 (10:36→17:06)
[2019-03-11 11:03] LABS: BANDS 2 % (0-1); EOS 4 % (1-10); LYMPHS 10 % (21-51); SEGS 84 % (42-75)
[2019-03-11 14:01] LABS: ALLEN TEST YES; BE 5.3 mmoll (-3.0-3.0); BLOOD TYPE ARTERIAL; O2(CT) 17.6 mL/dL (15.0-23.0); O2HB 94.3 % (95.0-99.0); PO2(98.6) 80 mmHg (60-100); SAMPLE BLOOD; SAO2 99.5 % (95.0-100.0); THB 13.2 g/dL (11.5-17.4); pH(98.6) 7.21 (7.35-7.45)
[2019-03-11 14:03] LABS: MODALITY CANNULA; PCO2(98.6) 91 mmHg (35-45)
[2019-03-11] MEDS ORDERED: MIRALAX PO STA (14:13)
--- NOTE | 2019-03-11 14:45 | PROGRESS NOTE ---
DATE: 03/11/2019 SUBJECTIVE: Today, Mr. Suazo refers to be doing well. He said he has not had a bowel movement for the past 6 days. He did just a minimum yesterday but he feels full and has a lot of abdominal pain. He also has shortness of breath. When he came into the emergency room, he was found to be hypoxemic and hypercarbic. ABG on admission did show a pCO2 of 80. Oxyhemoglobin was 85.3 and his carboxyhemoglobin was 8.2. OBJECTIVE: Current Vital Signs: Blood pressure is 136/99, pulse of 118, respirations are 24, temperature is 98.3 degrees. General Examination: Mr. Suazo is a 38-year-old, gentleman. He is in bed. He is on supplemental oxygen. HEENT: Mucosa is pink and moist. Anicteric. Acyanotic. Neck: Supple. Chest: Air entry is bilaterally reduced. There is prolonged expiratory phase of respiration. There is also diffuse bilateral wheezing. Cardiovascular: Regular rate and rhythm. GI: Abdomen is soft. It is remarkably distended. Bowel sounds present but hypoactive. Extremities: No pedal edema. 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 He looks quite uncomfortable. He is rocking back and forth. He has a mild tremor. He said he drinks about 8 beers on daily basis. ASSESSMENT: 1. Acute hypercarbic respiratory failure. 2. Acute hypoxemic respiratory failure. 3. Chronic obstructive pulmonary disease with moderate to severe exacerbation. 4. Chronic alcohol use and abuse with evidence of mild withdrawal. 5. Severe constipation. We will continue to address this with bowel regimen. 6. History of chronic pancreatitis, presumably alcohol-induced. 7. Tobacco use and abuse. The patient has been counseled. PLAN: In general, Mr. Suazo continues to be hypercarbic. We are going to put him on the BiPAP. I will consult pulmonary medicine. We will come start him on medication for the alcohol withdrawal and re-evaluate him in the morning. cc: MD Tutu Beck MD
[2019-03-11] MEDS: VITAMIN B-1 PO ONE ×2 (15:21→15:56)
[2019-03-11] MEDS: LIBRIUM PO SCH ×2 (15:21→21:02)
--- NOTE | 2019-03-11 16:20 | EKG Report ---
Test Performed on : 03/11/2019 1:47:32 PM Test Reason : ED. Blood Pressure : / mmHG Vent. Rate : 112 BPM Atrial Rate : 112 BPM P-R Int : 146 ms QRS Dur : 100 ms QT Int : 352 ms P-R-T Axes : 047 081 038 degrees QTc Int : 480 ms Sinus tachycardia. Otherwise normal ECG When compared with ECG of 22-SEP-2018 07:57, No significant change was found Unconfirmed Result
[2019-03-11] MEDS: NEURONTIN PO SCH (21:02)
[2019-03-12] MEDS: DUONEB (A & A) INH SCH ×8 (00:09→23:13)
[2019-03-12] MEDS: SOLU-MEDROL IV SCH ×4 (02:12→22:09)
[2019-03-12] MEDS: LEVAQUIN 500 MG/D5W 500 MG/100 ML IVPB IV SCH (02:12)
[2019-03-12] MEDS: ATIVAN IV PRN ×4 (03:16→22:08)
[2019-03-12] MEDS: THERA M PLUS PO SCH (08:21)
[2019-03-12] MEDS: NEURONTIN PO SCH ×2 (08:21→22:08)
[2019-03-12] MEDS: VITAMIN B-1 PO SCH (08:21)
[2019-03-12] MEDS: LIBRIUM PO SCH ×2 (08:21→22:08)
[2019-03-12] MEDS: MIRALAX PO SCH (08:21)
[2019-03-12] MEDS: MORPHINE IV PRN ×3 (10:35→23:28)
[2019-03-12] MEDS: NICODERM PATCH TD SCH (11:21)
--- NOTE | 2019-03-12 14:50 | PROGRESS NOTE ---
DATE: 03/12/2019 SUBJECTIVE: I have seen and examined Mr. Suazo today. He refers to be doing a lot better. Still has some cough and residual shortness of breath. He is currently on 6 L of nasal cannula. OBJECTIVE: Current Vital Signs: Blood pressure is 153/77, pulse of 116, respirations 24, temperature is 98.2 degrees. General: Mr. Suazo is a 38-year-old, obese, gentleman. BMI is 33.1. He is in bed. He is on supplemental oxygen. HEENT: Mucosa is pink and moist. Anicteric. Acyanotic. Neck: Supple. There is no JVD. Respiratory: There is good air entry bilaterally. There are still some end expiratory wheezing and some rhonchi diffusely in the posterior lung diaz. Cardiovascular: Slightly tachycardic, but regular. No murmurs, no rubs, no gallops. GI: Abdomen is soft, nontender. Bowel sounds are present. HUC OB: The patient is awake, alert, oriented. There is no focal deficit. The patient has minimal tremor in the hands, but it has remarkably improved. LABORATORY DATA: None for today. ASSESSMENT: 1. Acute hypercarbic respiratory failure. The patient was on bilevel positive airway pressure for some time yesterday. We are going to repeat his ABG. 2. Acute hypoxemic respiratory failure, most likely due to chronic obstructive pulmonary disease exacerbation. The patient is on supplemental 6 liters of nasal cannula. We are going to continue titrating this down. We want the patient to maintain oxygen saturation between 88% to 92%. 3. Chronic obstructive pulmonary disease with [id number] exacerbation. Mr. Suazo is currently on bronchodilation therapy, steroids, and antimicrobials. 4. Chronic alcohol use and abuse with evidence of mild withdrawal on admission. The patient is on as needed Ativan therapy. He has been started on low-dose Librium with gabapentin. 5. Severe constipation. The patient is on bowel regimen, and has still not had any bowel movement today. 6. History of chronic pancreatitis, presumably alcohol related. 7. Tobacco use and abuse. The patient has been counseled. 8. Carboxyhemoglobinemia on admission. In general, I think Mr. Suazo is doing a lot better. The withdrawal symptoms from alcohol seem to have improved. Oxygenation has also significantly improved. He is still on pretty high oxygen supplement to meet adequate saturation. We are going to continue this, and gradually titrate him off until he is about 2 to 3, and then get him home. I presume he might need oxygen to go home with, and I have also started titrating him down on the steroid therapy. We will observe Mr. Suazo another day, re-evaluate his ABG and chest x-ray in the morning, and make a decision if he can be discharged. cc: MD Tutu Beck MD
[2019-03-13] MEDS: LEVAQUIN 500 MG/D5W 500 MG/100 ML IVPB IV SCH (03:40)
[2019-03-13] MEDS: DUONEB (A & A) INH SCH ×6 (03:56→22:44)
[2019-03-13] MEDS: ATIVAN IV PRN ×4 (06:45→22:08)
[2019-03-13] MEDS: MORPHINE IV PRN ×3 (07:44→18:31)
--- NOTE | 2019-03-13 08:25 | Diag Imaging Result Doc PS360 ---
EXAM: CHEST-2 VIEWS 03/13/2019 HISTORY: hypoxia TECHNIQUE: PA and lateral chest COMMENT: There is ill-defined opacity obscuring portions of the right hemidiaphragm. This was not the case on 03/11/2019. IMPRESSION: Atelectasis and/or pneumonia right lower lobe. Electronically signed by Henry Bryant 03/13/2019 8:22 AM
[2019-03-13] MEDS: THERA M PLUS PO SCH (08:46)
[2019-03-13] MEDS: MIRALAX PO SCH (08:46)
[2019-03-13] MEDS: VITAMIN B-1 PO SCH (08:46)
[2019-03-13] MEDS: LOVENOX SUBQ SCH (08:46)
[2019-03-13] MEDS: NICODERM PATCH TD SCH (08:46)
[2019-03-13] MEDS: NEURONTIN PO SCH ×2 (08:46→21:48)
[2019-03-13] MEDS: SOLU-MEDROL IV SCH ×2 (08:47→21:48)
[2019-03-13] MEDS: LIBRIUM PO SCH ×2 (08:50→21:49)
[2019-03-13] MEDS ORDERED: ORAJEL MAXIMUM STRENGTH LIQUID TOP PRN (15:37)
[2019-03-13] MEDS ORDERED: APRESOLINE IV PRN (15:58)
[2019-03-13] MEDS ORDERED: CLINDAMYCIN 600 MG/NS 600 MG/50 ML IVPB IV SCH (16:00)
[2019-03-13] MEDS: ULTRAM PO PRN (16:12)
--- NOTE | 2019-03-13 16:29 | PROGRESS NOTE ---
DATE: 03/13/2019 SUBJECTIVE: Patient is still complaining of mild shortness of breath and abdominal discomfort, but better compared with before. He is complaining though of a lot of mouth pain, especially at the level of the lower teeth. He has really poor dentition with multiple cavities, and likely he has also an abscess. The gum in the frontal and inferior area looks inflamed. I will add clindamycin to his medications. His blood pressure has been elevated probably because of the pain. I will continue with the same management for now, but I will add benzocaine to be placed on his teeth, and also pain medication by mouth like tramadol. OBJECTIVE: Vital Signs: Temperature 98.1 degrees, pulse 117, respiratory rate 22, blood pressure 180/115, oxygen saturation 98 on 5 L nasal cannula. HEENT: Head normocephalic, no trauma. PERRLA. Neck: Supple. No JVD. No masses. Central trachea. Chest: Clear to auscultation. Some mild end-expiratory wheezing and rhonchi, mostly at the bases. Cardiovascular: RRR. Tachycardic. Abdomen: Soft. Tenderness to palpation at the level of the left upper quadrant, but better compared with before. His abdomen is distended. Neurological examination: This patient is awake, alert. He has some mild tremors in the hands. LABORATORY DATA: No lab work done today. I will repeat the lab work in the morning. ASSESSMENT AND PLAN: 1. Acute hypercarbic respiratory failure. This patient was on the BiPAP machine for some time a couple days ago. Now he is on a nasal cannula. The pCO2 was elevated at 91. I will get a new set of IBD in the morning to see how he does. I will continue with antibiotics, steroids, breathing treatment as well. 2. Right lower lobe pneumonia. Continue with levofloxacin. I would like clindamycin because it looks like he has a dental problem and possibly an abscess. I will monitor for now. Continue with the rest of the treatment, including oxygen. 3. Possible dental abscess. I will add clindamycin to his medications and continue to monitor. 4. Chronic alcohol use and abuse with some withdrawal symptoms on admission. Continue with same management for now. Continue with Librium, gabapentin, and multivitamins. 5. Severe constipation. This is better. He had a couple bowel movements yesterday and a couple bowel movements today. 6. History of chronic pancreatitis, likely related to alcohol. Aware. 7. Tobacco use and abuse. This patient has been advised against tobacco use. I will continue with daily cessation education. 8. Alcohol abuse. This patient has been advised against alcohol use and abuse. He has been counseled. 9. Hypertension. Probably this is related to his pain. I will add hydralazine as needed if the blood pressure is above 180. I will monitor this for one more day. I do not have any medication listed for blood pressure. 10. Possible history of liver problems. His liver enzymes are elevated and they have been elevated since 2018 at least, especially AST, ALT. I will recheck the liver enzymes tomorrow. I will ask for a hepatitis profile as well. Likely this is related to alcohol use. We will monitor. cc: MD Tutu Azevedo MD
[2019-03-13] MEDS: CLINDAMYCIN 600 MG/D5W 600 MG/50 ML IVPB IV SCH (16:46)
[2019-03-14] MEDS: MORPHINE IV PRN ×6 (00:06→21:26)
[2019-03-14] MEDS: CLINDAMYCIN 600 MG/D5W 600 MG/50 ML IVPB IV SCH ×3 (01:31→16:54)
[2019-03-14] MEDS: ATIVAN IV PRN ×3 (01:47→19:58)
[2019-03-14] MEDS: LEVAQUIN 500 MG/D5W 500 MG/100 ML IVPB IV SCH (02:31)
[2019-03-14] MEDS: DUONEB (A & A) INH SCH ×6 (03:31→23:08)
[2019-03-14 07:15] LABS: HEMATOCRIT 42.6 % (42.0-52.0); HEMOGLOBIN 13.5 g/dL (14.0-18.0); IMM GRAN# 0.03 X1000 (0.0-0.04); IMM GRAN% 0.4 % (0.0-0.5); LYMPH# 0.54 X1000 (1.2-3.4); LYMPH% 7.1 % (20.5-51.1); MCH 32.1 PG (27-31); MCHC 31.7 g/dL (33-37); MCV 101.4 FL (81-99); MONO# 0.63 X1000 (0.11-0.59); MONO% 8.2 % (1.7-9.3); MPV 9.4 FL (7.4-10.4); NEUT# 6.45 X1000 (1.4-6.5); NEUT% 84.3 % (42.2-75.2); PLT 370 X1000 (130-400); WBC 7.65 X1000 (4.8-10.8)
[2019-03-14 07:51] LABS: AGAP 12; ALB/GLOB RATIO 0.9; ALBUMIN 3.4 g/dL (3.5-5.0); ALKALINE PHOSPHATASE 88 U/L (32-122); BUN 13 mg/dL (8-22); CALCIUM 9.1 mg/dL (8.8-10.2); CHLORIDE 94 mmol/L (98-107); COSMO 279; CREATININE 0.8 mg/dL (0.7-1.2); ESTIMATED GFR > 60; GLUCOSE 122 mg/dL (70-104); GOT 42 U/L (10-34); GPT 97 U/L (10-44); PHOSPHORUS 4.4 mg/dL (2.7-4.5); POTASSIUM 4.6 mmol/L (3.5-5.1); SODIUM 139 mmol/L (136-145); TCO2 33 mmol/L (25-35); TOTAL BILIRUBIN 0.39 mg/dL (0.20-1.00)
--- NOTE | 2019-03-14 07:58 | Diag Imaging Result Doc PS360 ---
EXAM: CHEST-2 VIEWS HISTORY: hypoxia TECHNIQUE: Two views COMPARISON: 03/13/2019 FINDINGS: The lungs are well expanded except for right basilar atelectasis. The heart is not enlarged. The vessels are not distended. There are no infiltrates. Small right pleural effusion. IMPRESSION: Slight interval worsening Electronically signed by Ramón Gutierrez 03/14/2019 7:56 AM
[2019-03-14] MEDS: NEURONTIN PO SCH ×2 (08:46→19:58)
[2019-03-14] MEDS: LIBRIUM PO SCH ×2 (08:46→19:57)
[2019-03-14] MEDS: VITAMIN B-1 PO SCH (08:46)
[2019-03-14] MEDS: THERA M PLUS PO SCH (08:46)
[2019-03-14] MEDS: NICODERM PATCH TD SCH (08:47)
[2019-03-14] MEDS: LOVENOX SUBQ SCH (08:47)
[2019-03-14] MEDS: MIRALAX PO SCH (08:47)
[2019-03-14] MEDS: SOLU-MEDROL IV SCH (08:47)
[2019-03-14] MEDS: PROTONIX PO SCH ×2 (13:12→19:58)
[2019-03-14] MEDS: LASIX IV SCH (13:43)
--- NOTE | 2019-03-14 14:11 | PROGRESS NOTE ---
DATE: 03/14/2019 SUBJECTIVE: The patient is not complaining today of shortness of breath, but he is complaining of epigastric pain. It looks like it is more related to a burning sensation/sharp pain in the epigastric and left upper quadrant. A few weeks ago he was having a lot of reflux so probably this is related to a gastritis. What I was going to do is I will put this patient on Protonix twice a day and Carafate to see how he does. On the other hand, I will continue with the medications. I will increase the frequency of the morphine. Pending hepatitis profile, x-ray looks a little bit worse compared with the previous one. He has a right basilar atelectasis with a small right pleural effusion. I will ask for an ultrasound: I will ask for an abdominal ultrasound. As per the patient, he has a medical history of liver cirrhosis, but I do not have that documented. OBJECTIVE: Vital Signs: Temperature 97.6 degrees, pulse 113, respiratory rate 23, blood pressure 157/105, and oxygen saturation 94% on room air. HEENT: Head normocephalic. No trauma. PERRLA. Neck: Supple. No JVD. No masses. Central trachea. Chest: Clear to auscultation. Some mild end-expiratory wheezing and some rhonchi at the bases. Cardiovascular: Regular rate and rhythm. Tachycardic. Abdomen: Soft. There is some tenderness to palpation at the level of the epigastric area and left upper quadrant. His abdomen is distended. I do not feel any hepatosplenomegaly. Neurological: Patient is awake and alert. He had some tremors yesterday in the hands, but not right now. LABORATORY: WBC 7.6, hemoglobin 13.5, hematocrit 42.6, and platelets 370,000. Sodium 139, potassium 4.6, chloride 94, bicarbonate 33, BUN 13, creatinine 0.8 glucose 122, and calcium 9.1. AST 42, ALT 97, alkaline phosphatase 88, and albumin 3.4. ASSESSMENT AND PLAN: 1. Acute hypercarbic respiratory failure. This patient was on the BiPAP machine for some time, but now he is tolerating nasal cannula. As per the patient, he is not on home O2. The pCO2 was elevated at 91. I will get a new set of ABG's in the morning, I will continue with antibiotics. I will continue with steroids, but I will decrease it from twice a day just to once a day. Hopefully, tomorrow, if this patient is doing better we can switch it to p.o. 2. Acute hypoxemic respiratory failure. Continue with oxygen supplementation per #1. 3. Right lower lobe pneumonia. Continue with levofloxacin. I added clindamycin because of his dental problem and the possibility of an abscess in that area. We will monitor for now. Continue with the rest of the treatment including oxygen. 4. Possible dental abscess. Aware. Continue with clindamycin. He is still complaining of pain, and is inflamed as well. 5. Chronic alcohol use and abuse with some withdrawal symptoms on admission. Continue with Librium, gabapentin, and multivitamins, I will probably continue with same management for now. 6. Severe constipation, better. 7. Possible history of liver cirrhosis. I will ask for an ultrasound of the abdomen to rule it out, I do not have any previous documentation of this. He seems to have some fluid overload, mild. I will put this patient on Lasix once a day to see how he does. 8. History of chronic pancreatitis, likely related to alcohol aware. 9. Tobacco use and abuse. This patient has been highly advised against tobacco use. I will continue with daily cessation and education. 10. Alcohol abuse. This patient has been advised/counseled. 11. Hypertension. This is probably related to pain. His blood pressure has been elevated on and off. I have increased the pain medication frequency. 12. Elevated liver function tests, probably related to alcohol, but we are also waiting for the hepatitis panel results. The LFTs are getting better though. 13. Abdominal pain, this is probably related to severe gastritis. I will place this patient on pantoprazole and Carafate to see how he does. He recently had a CT scan done I believe in the emergency department on 03/08/2019 that showed a nonobstructing left renal stone and mild constipation. At that time, he came in complaining of abdominal pain. He did not mention any problem with the liver. 14. Poor dentition. Aware. cc: MD Tutu Azevedo MD
[2019-03-14] MEDS: CARAFATE PO SCH ×2 (16:54→19:57)
--- NOTE | 2019-03-14 17:24 | Diag Imaging Result Doc PS360 ---
EXAM: US ABDOMEN-COMPLETE INDICATION: elevated LFTs, liver cirrhosis? COMPARISON: None. FINDINGS: The gallbladder is contracted. There is gallbladder wall thickening. However, this is probably due to the contraction. No pericholecystic fluid is identified. The common bile duct is normal in diameter. Sonographic Lindsay's sign was reported to be negative. The liver is mildly prominent measuring up to 18.2 cm in length. No discrete hepatic mass is appreciated. Portal venous flow is hepatopetal. The pancreas is partially obscured. The visualized portion is unremarkable. The aorta and IVC are grossly unremarkable. The spleen is unremarkable. The kidneys are essentially unremarkable. IMPRESSION: 1.The liver is mildly prominent but unremarkable, otherwise. 2.Contracted gallbladder with thickened wall. This is probably due to the contraction. Electronically signed by Jarrett Felix 03/14/2019 5:22 PM
[2019-03-15] MEDS: ULTRAM PO PRN ×2 (01:02→06:49)
[2019-03-15] MEDS: PROTONIX PO SCH ×2 (01:51→08:05)
[2019-03-15] MEDS: NEURONTIN PO SCH ×2 (01:51→08:04)
[2019-03-15] MEDS: CARAFATE PO SCH ×3 (01:51→11:02)
[2019-03-15] MEDS: LIBRIUM PO SCH ×2 (01:51→08:04)
[2019-03-15] MEDS: CLINDAMYCIN 600 MG/D5W 600 MG/50 ML IVPB IV SCH ×2 (01:52→08:04)
[2019-03-15] MEDS: LEVAQUIN 500 MG/D5W 500 MG/100 ML IVPB IV SCH (02:34)
[2019-03-15] MEDS: ATIVAN IV PRN ×3 (02:47→14:07)
[2019-03-15] MEDS: DUONEB (A & A) INH SCH ×3 (03:40→11:20)
[2019-03-15 06:08] LABS: ALLEN TEST YES; BLOOD TYPE ARTERIAL; HCO3-(ACT) 33.5 mmoll (20.0-26.0); METHB 0.6 % (0.0-1.5); O2(CT) 19.5 mL/dL (15.0-23.0); O2HB 96.4 % (95.0-99.0); PO2(98.6) 94 mmHg (60-100); SAMPLE BLOOD; SAO2 98.6 % (95.0-100.0); THB 14.3 g/dL (11.5-17.4); pH(98.6) 7.44 (7.35-7.45)
[2019-03-15 06:14] LABS: PCO2(98.6) 55 mmHg (35-45)
[2019-03-15 06:15] LABS: MODALITY ROOM AIR
[2019-03-15 07:25] LABS: HEMATOCRIT 42.8 % (42.0-52.0); HEMOGLOBIN 13.6 g/dL (14.0-18.0); MCH 32.5 PG (27-31); MCHC 31.8 g/dL (33-37); MCV 102.1 FL (81-99); MPV 9.4 FL (7.4-10.4); RBC 4.19 XMIL (4.7-6.1); RDW 14.3 % (11.5-14.5); WBC 6.8 X1000 (4.8-10.8)
[2019-03-15] MEDS: MORPHINE IV PRN ×3 (08:03→14:07)
[2019-03-15] MEDS: NICODERM PATCH TD SCH (08:04)
[2019-03-15] MEDS: THERA M PLUS PO SCH (08:05)
[2019-03-15] MEDS: LOVENOX SUBQ SCH (08:05)
[2019-03-15] MEDS: VITAMIN B-1 PO SCH (08:05)
[2019-03-15] MEDS: LASIX IV SCH (08:05)
[2019-03-15] MEDS: MIRALAX PO SCH (08:05)
[2019-03-15 08:33] LABS: AGAP 9; ALB/GLOB RATIO 1.2; ALBUMIN 3.7 g/dL (3.5-5.0); ALKALINE PHOSPHATASE 83 U/L (32-122); BUN 19 mg/dL (8-22); CALCIUM 8.9 mg/dL (8.8-10.2); CHLORIDE 90 mmol/L (98-107); COSMO 272; CREATININE 0.9 mg/dL (0.7-1.2); ESTIMATED GFR > 60; GLUCOSE 88 mg/dL (70-104); GOT 43 U/L (10-34); GPT 92 U/L (10-44); POTASSIUM 3.8 mmol/L (3.5-5.1); SODIUM 135 mmol/L (136-145); TCO2 36 mmol/L (25-35); TOTAL BILIRUBIN 0.32 mg/dL (0.20-1.00); TOTAL PROTEIN 6.7 g/dL (6.3-8.3)
[2019-03-15] MEDS ORDERED: SOLU-MEDROL IV SCH (09:00)
[2019-03-15 12:03] LABS: HEPATITIS PROFILE ACUTE SEE COMMENTS
[2019-03-15 13:46] VITALS: BP 165/102
[2019-03-15] MEDS ORDERED: FLU VACCINE IM ONE (14:29)
[2019-03-15] MEDS ORDERED: PNEUMOVAX 23 IM ONE (14:29)
--- NOTE | 2019-03-15 20:11 | DISCHARGE SUMMARY ---
ADMISSION DATE: 03/11/2019 DISCHARGE DATE: 03/15/2019 DISPOSITION: Home. FOLLOW-UP: Dr. Stokes. The patient is advised to also follow up with a dentist and to get a primary care doctor. CONSULTATION DURING THIS ADMISSION: None. IMAGING STUDIES OF SIGNIFICANCE: 1. Initial chest x-ray was unremarkable. 2. Ultrasound of the abdomen did show liver is mildly prominent but unremarkable. There is a contracted gallbladder with thickened wall. ADMISSION DIAGNOSIS: 1. COPD exacerbation. 2. Chronic alcoholism. 3. Cirrhosis by history. DISCHARGE DIAGNOSIS: 1. Acute hypercarbic respiratory failure. 2. Acute hypoxemic respiratory failure. 3. COPD with moderate to severe exacerbation. 4. Chronic alcohol use and abuse with evidence of alcohol withdrawal on admission. 5. Fatty liver disease. 6. Severe constipation. 7. Chronic pancreatitis, presumably alcohol related. 8. Tobacco use and abuse. 9. Carboxyhemoglobinemia on admission. 10. Poor dentition. 11. Hypertension. DISCHARGE MEDICATIONS: 1. Carafate 1 g p.o. 4 times per day. 2. Levofloxacin 500 p.o. daily. 3. Gabapentin 100 mg b.i.d. 4. Nicotine patch. 5. Prednisone 20 mg p.o. daily. 6. Pantoprazole 40 mg b.i.d. 7. Multivitamin 1 tab daily. 8. Albuterol inhaler 2 puffs every 6 hourly p.r.n. 9. Thiamine 100 mg p.o. daily. 10. Albuterol inhaler 2.5 mg. 11. Nebulizer and compressor. 12. Symbicort 2 puffs b.i.d. 13. Losartan mg p.o. daily. PRESENTING COMPLAINT: Shortness of breath. HISTORY OF PRESENT COMPLAINT: Mr. Suazo is a 38-year-old male who has history of remote cirrhosis, chronic pancreatitis, and possible COPD came to the emergency department because of shortness of breath. He was evaluated, was initially found to be remarkably hypoxemic with oxygen dropping to sometimes 80 on admission. ABGs were done which showed a pCO2 of 80. It went up to 91. Mr. Suazo was subsequently put on BiPAP and admitted. HOSPITAL COURSE: Mr. Suazo was admitted, was placed on a BiPAP, started on IV antibiotics, steroids, and nebulization. Throughout the hospital course, he did show remarkable improvement from respiratory standpoint. There was no need to consult Pulmonary. Mr. Suazo was also found to be in alcohol withdrawal and was treated accordingly. During the hospital course, Mr. Suazo was found to have persistent elevation in the blood pressure. After this morning it was 165/102. He was treated intermittently. However, today we started him on losartan and we have advised that he follows up with the primary care. Mr. Suazo is a daily consumer of alcohol as well as smokes heavily. We have addressed extensively both alcohol and smoking cessation. He voiced understanding. We have also offered nicotine patches and gabapentin to help with alcohol. Today Mr. Bonds is remarkably stable. He is not symptomatic from respiratory standpoint anymore. We think he is stable enough to be discharged home. He will need to follow up with Pulmonary Medicine and a PCP. All the discharge instructions have been discussed with him and he voiced understanding. Time spent for discharge is 33 minutes. cc: Alexx Gastelum MD
== END 2019-03-15 15:23 | disposition home or self-care (01) | DRG 190 ==
LOC: ED 23:46 → SUATTDRO 03-11 02:40 → EDIPHOLD 03-11 02:40 → 4N 03-11 15:56
PROVIDERS: ADMIT Internal Medicine; ATTEND Internal Medicine